=== PATIENT | male | born 1935 | race Caucasian/White ===

== ENCOUNTER → 2017-03-07 | Outpatient (CLI) | payer OTHER ==
--- NOTE | 2017-03-10 11:46 | EEG Procedure Note ---
EEG Procedure Note Date of Service Mar 07, 2017. Start / End Times Start Time: 9:15 AM End Time: 9:36 AM Referring Physician Francia Goodman History This is a 81-year-old male with a history of epilepsy NOS and breakthrough seizures. EEG for further evaluation of seizure etiology. Home medications include phenobarbital Description This is a 21 electrode EEG with a single channel dedicated to limited EKG. The electrodes were placed in accordance with the International 10-20 system. At the start of the recording the patient was in an awake state. Background was well organized and composed of symmetric mixed alpha and beta frequencies. There was a symmetric well-formed moderate amplitude 10-11 Hz posterior dominant rhythm that was reactive to eye opening and closure. Hyperventilation was not done. Intermittent photic stimulation at various frequencies produced no abnormalities. There was no state changes or sleep transients. Interpretation This is a normal awake only routine EEG. There was no electrographic seizures or epileptiform discharges. Clinical Correlation A normal EEG does not rule out epilepsy if there is a strong clinical suspicion.
== END | disposition home or self-care (01) ==
LOC: C.NEUR 08:58
PROVIDERS: ATTEND Psychiatry & Neurology Neurology
DX: G40.909 Epilepsy, unspecified, not intractable, without status epilepticus (principal)

== ENCOUNTER 2020-05-20 23:41 | Inpatient (IN) ==
[2020-05-21] MEDS ORDERED: MoRPHine SULFATE 2 MG/ML CARP IV PRN (02:15)
[2020-05-21] MEDS ORDERED: ACETAMINOPHEN 1000 MG/100 ML IV IV PRN (02:15)
[2020-05-21] MEDS ORDERED: ONDANSETRON INJ 2 MG/ML 2 ML VIAL IV PRN ×3 (02:15→18:44)
[2020-05-21] MEDS ORDERED: MoRPHine SULFATE 2 MG/ML CARP ONE (02:30)
[2020-05-21] MEDS: SODIUM CHLORIDE 0.9% 1000ML 1,000 ML IV SCH ×3 (02:41→19:23)
--- NOTE | 2020-05-21 03:50 | History & Physical Report ---
Date of Service May 21, 2020 Assessment & Plan (1) Fracture of femoral neck, left: Mr. Castro is an 84 yo M with a PMHx of cerebral palsy who was transferred from [facility] after sustaining a left femoral neck fracture after a mechanical fall. - left LE is neurovascular intact on exam - radiographs from [facility] uploaded in our system, available for review. No pelvic fracture or dislocations noted. - orthopedic surgery (Dr. Lora) has accepted patient, formal consult placed - IV Tylenol prn and IV morphine prn for pain control - CBC, BMP in AM - NPO in anticipation of procedure - bedrest - case management consulted for discharge planning, as patient will likely need rehab after surgery (2) Benign localized hyperplasia of prostate with urinary obstruction and lower urinary tract symptoms: - continue home flomax and duasteride (3) Hyperlipidemia: - continue home statin and baby ASA (4) Hx of seizure disorder: - patient had history of seizure disorder as a child. most recent seizure was 70 years ago, yet he is still taking phenobarbital 32.4mg, daily - continued overnight, but recommend day team discuss discontinuation fo this agent (5) Pulmonary nodule: - nodule of left lung noted on CXR incidentally from [facility] - images uploaded in iP[employer] - DVT ppx: Lovenox 40mg, SQ, daily, SCDs - Diet: NPO in anticiation of procedure - Dispo: Med/Surg - Code: DNR/dNI Admission and Anticipated Discharge Date Admission Date: May 21, 2020 History of Present Illness Primary Care Provider: Gabby Reyna MD Mr. Castro is an 84 yo M with a PMHx of cerebral palsy who was transferred to [facility] from [facility] overnight for surgical consultation regarding a left femoral neck fracture he sustained on 05/20/20. [facility] he sustained a mechanical fall on pavement. He typically uses a walker to ambulate around his house, but he reported that he did not have his typical assistive device while at the gathering. Instead, he was walking around with the aid of a "3 britt" and the support fo a family member - however they could not catch him before be fell down and struck the pavement. Immediately after the fall he had severe left hip pain and swelling. He could not bear weight on his left leg after the fall. An ambulance was called and transported him to [facility] where XRs showed a non- displaced left femoral neck fracture. He was treated with IV morphine for pain control. The [facility] ED physician spoke with Dr. Lora (orthopedic surgeon) at [facility] who accepted his transfer. Medicine team was contacted and processed direct admission. Of note, Mr. Castro has had one prior operation on his left femur - this occured many years ago and was related to his cerebral palsy. Allergies Allergy/AdvReac Type Severity Reaction Status Date / Time No Known Drug Allergies Allergy Verified 03/02/20 12:23 Home Medications Home Medications Medication Instructions Recorded Confirmed Type ascorbic acid (vitamin C) 500 mg 500 mg PO .TAKE 1 TABLET DAILY. 03/01/20 05/21/20 History tablet aspirin 81 mg tablet,delayed 81 mg PO .TAKE 1 TABLET DAILY. 03/01/20 05/21/20 History release calcium polycarbophil 625 mg tablet 625 mg PO .TAKE 2 TABLET Bedtime 03/01/20 05/21/20 History ibuprofen 200 mg tablet 200 mg PO .TAKE 1 TABLET Every 4 03/01/20 05/21/20 History hours PRN phenobarbital 32.4 mg tablet 32.4 mg PO .TAKE 1 TABLET TWICE 03/01/20 05/21/20 History DAILY. rosuvastatin 10 mg tablet 10 mg PO .TAKE 1 TABLET DAILY. 03/01/20 05/21/20 History dutasteride 0.5 mg capsule 0.5 mg PO DAILY #90 cap 03/02/20 05/21/20 Rx tamsulosin 0.4 mg capsule 0.4 mg PO BID 90 Days #180 cap 03/02/20 05/21/20 Rx Past Med/Surg History Medical History Bilateral inguinal hernia BPH (benign prostatic hyperplasia) Bronchitis Cerebral palsy Cough Diverticula of colon Epistaxis 06/23/18 Femur neck fracture 05/20/20 History of seizure as Hypercholesterolemia Hyperlipidemia Sepsis 01/24/18 Surgical History Hx of hernia repair Family History Grandfather No problems noted. Father COPD (chronic obstructive pulmonary disease) Cardiac disorder Mother Cardiac disorder Breast cancer Other Nephrolithiasis Seizures Social History Smoking Status: Never smoker Hx Alcohol Use: No Hx Substance Use: No Preferred Language: Greek Communication Ability: Effective Lot Attendant Required: No Beliefs That Will Affect Care: None marital status: Single Current Living Situation: Family Current Living Situation Comment: with sister current occupational status: retired Other Information That Helps Us Care for You: No Feels Safe at Home: Yes Safety Concerns: Feels Safe At This Time Review of Systems Musculoskeletal: as per Subjective / HPI Physical Exam Constitutional: well nourished, + acute distress and cooperative Eyes: + anicteric sclerae ENMT: external ear and nose normal, oropharynx normal Neck: normal visual inspection and trachea midline Respiratory: normal respiratory effort, lungs clear to auscultation Cardiovascular: RRR, no murmur, no edema Heart Sounds: normal S1 and normal S2 Gastrointestinal (Abdomen): normal bowel sounds, soft, nontender, no hepatosplenomegaly Musculoskeletal: Hip: + hip abnormal to inpsection (L hip swelling and ecchymosis), + ecchymosis, + surgical incision (well healed incision ) and + limited ROM of hip Left lower extremity is neurovascularly intact - peripheral pulses +2. Patient sensate to gross touch, able to wiggle toes on L foot. Psychiatric: A+Ox3, euthymic affect Genitourinary: Landers catheter in place, draining yellow urine without visible blood clots Results & Data Results & Data ([facility]) Vital Signs (Past 12 Hours) Vital Signs Temp Resp BP Pulse Ox 05/21/20 01:30 36.8 C 18 92/52 L 94 Supervising Physician Co-Signing Physician Notes Attending addendum: I have physically seen this patient, have supervised the medical residents activities, and agree with the H&P unless as otherwise noted. Assessment and Plan: Closed fracture left femoral neck- NPO Acetaminophen 1 g IV every 8 hours PRN mild pain or temperature Morphine sulfate 2 mg IV every 4 hours as needed severe pain Consult orthopedic surgery Dr. Lora. Zofran 4 mg IV every 6 hours PRN Famotidine 20 mg IV every 12 hours BPH with OBS/LUTS- Continue Flomax and dutasteride Hyperlipidemia- Continue rosuvastatin Remainder of orders and notations as noted. Resident Activity Tracking Resident Involvement: Resident Care Provided Care Provided: Adult Hospital Medicine
[2020-05-21 05:45] LABS: Basophils # (auto) 0.01 K/uL (0-0.2); Basophils % (auto) 0.1 %; Eosinophils # (auto) 0.09 K/uL (0-0.5); Eosinophils % (auto) 0.9 %; Hemoglobin 13.9 g/dL (14.0-18.0); Immature Granulocytes # (auto) 0.02 K/uL (0.00-0.02); Immature Granulocytes % (auto) 0.2 %; Lymphocytes # (auto) 1.02 K/uL (1.2-3.4); Lymphocytes % (auto) 10.2 %; Mean Corpuscular Hemoglobin 31.4 pg (25-34); Mean Corpuscular Hgb Conc 32.3 g/dL (32-36); Mean Corpuscular Volume 97.3 fL (80-100); Monocytes # (auto) 0.48 K/uL (0.11-0.59); Monocytes % (auto) 4.8 %; Neutrophils # (auto) 8.39 K/uL (1.4-6.5); Neutrophils % (auto) 83.8 %; Platelet Count 152 K/uL (130-400); RDW Coefficient of Variation 14.4 % (11.5-14.5); RDW Standard Deviation 51.3 fL (36.4-46.3); Red Blood Count 4.42 M/uL (4.7-6.1); White Blood Count 10.01 K/uL (4.8-10.8)
[2020-05-21 06:09] LABS: BUN Creatinine Ratio 20.9 (10-20); Calcium 8.1 mg/dl (8.5-10.1); Creatinine Clr Calc Pharmacy 47.2 ml/min; Est GFR (Non-African American) 81.1; Potassium 4.4 mmol/L (3.5-5.1)
--- NOTE | 2020-05-21 07:51 | Orthopedic Consultation ---
Date of Consultation May 21, 2020 Assessment & Plan (1) Fracture of femoral neck, left: He has a displaced left femoral neck fracture. This will require a left hip hemiarthroplasty. I discussed this with him and his family. They understand the risks, benefits, and alternatives to procedure and elected proceed. Questions were answered at bedside today.Postoperatively he will be kept on anticoagulants and kept in the hospital for postoperative medical management and ambulation with physical therapy. Present on Admission?: Yes History of Present Illness Reason for Consultation: Displaced left femoral neck fracture Attending Physician: Greg Gonzalez DO History of Present Illness Willem is a pleasant 84-year-old male with a history of cerebral palsy. He normally ambulates with a walker. He was at a family gathering yesterday when he fell on the pavement. He had severe left hip pain. He was brought to the emergency room where radiographs demonstrated a displaced left femoral neck fracture. He was transferred from [facility] emergency room to [facility]. Orthopedics was consulted to evaluate and treat. Allergies Allergy/AdvReac Type Severity Reaction Status Date / Time No Known Drug Allergies Allergy Verified 03/02/20 12:23 Home Medications Home Medications Medication Instructions Recorded Confirmed Type ascorbic acid (vitamin C) 500 mg PO .TAKE 1 TABLET DAILY. 03/01/20 03/01/20 History tablet aspirin 81 mg tablet,delayed mg PO .TAKE 1 TABLET DAILY. 03/01/20 03/01/20 History release calcium polycarbophil 625 mg tablet mg PO .TAKE 2 TABLET Bedtime 03/01/20 03/01/20 History ibuprofen 200 mg tablet mg PO .TAKE 1 TABLET Every 4 hours 03/01/20 03/01/20 History PRN phenobarbital 32.4 mg tablet mg PO .TAKE 1 TABLET TWICE DAILY. 03/01/20 03/01/20 History rosuvastatin 10 mg tablet mg PO .TAKE 1 TABLET DAILY. 03/01/20 03/01/20 History dutasteride 0.5 mg capsule 0.5 mg PO DAILY #90 cap 03/02/20 03/02/20 Rx tamsulosin 0.4 mg capsule 0.4 mg PO BID 90 Days #180 cap 03/02/20 03/02/20 Rx Patient History Medical History Bilateral inguinal hernia BPH (benign prostatic hyperplasia) Bronchitis Cerebral palsy Cough Diverticula of colon Epistaxis 06/23/18 Femur neck fracture 05/20/20 History of seizure as Hypercholesterolemia Hyperlipidemia Sepsis 01/24/18 Surgical History Hx of hernia repair Family History Grandfather No problems noted. 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 Beliefs That Will Affect Care: None marital status: Single Current Living Situation: Family Current Living Situation Comment: with sister current occupational status: retired Other Information That Helps Us Care for You: No Feels Safe at Home: Yes Safety Concerns: Feels Safe At This Time Review of Systems Review of Systems: All systems reviewed & are unremarkable except as noted in HPI & below Physical Exam Constitutional: WD/WN, vitals as above Eyes: PERRL, conjunctivae normal, anicteric sclerae ENMT: external ear and nose normal, oropharynx normal Neck: trachea midline, no thyromegaly Respiratory: normal respiratory effort Cardiovascular: RRR, no murmur, no edema Gastrointestinal (Abdomen): normal bowel sounds, soft, nontender, no hepatosplenomegaly Musculoskeletal: On physical examination of the left hip, he sitting with his hip flexed that 90 degrees. I am unable to do any range of motion of his hip because of pain. There are no abrasions lesions lacerations of the skin. Psychiatric: A+Ox3, euthymic affect Results & Data ([facility]) Vital Signs (Past 12 Hours) Vital Signs Temp Pulse Resp BP Pulse Ox 05/21/20 07:09 36.4 C L 83 16 111/64 96 05/21/20 01:30 36.8 C 18 92/52 L 94 Diagnostic Findings X-rays of the left hip and pelvis do show a displaced left femoral neck fracture. PG Care Time/CCT Total # of Minutes Spent Total Time Spent with Patient: Total time spent is greater than 50% in coordination of care (as documented) at patient's floor/unit and/or counseling patient: Coding Level of Care Code 18619 Initial Inpt Care Lvl 3 Diagnoses Fracture of femoral neck, left S72.002A
[2020-05-21] MEDS ORDERED: ENOXAPARIN INJ 40 MG/0.4 ML SYR SQ SCH (09:00)
--- NOTE | 2020-05-21 10:10 | Hospitalist Progress Note ---
Date of Service May 21, 2020 Assessment & Plan (1) Fracture of femoral neck, left: Mr. Castro is an 84 yo M with a PMHx of cerebral palsy who was transferred from [facility] after sustaining a left femoral neck fracture after a mechanical fall. - radiographs from [facility] with left femoral neck fracture. No pelvic fracture or dislocations noted. - orthopedic surgery consulted - discussed with patient's poa and he is scheduled for surgery this morning - IV Tylenol prn and IV morphine prn for pain control - NPO for procedure - Will add coags for lab work as I don't see any from previous hospital or currently - CXR from previous hospital readout without acute infiltrate, edema, or effusion. Does show a left pulmonary nodule - No EKGs available from previous. Patient denies chest pain and does not appear to have a cardiac history. EKG shows bifasicular block. Given that he is not experiencing anginal symptoms and his fall was mechanical, this is likely a chronic finding. - VSS, no electrolyte abnormalities - case management consulted for discharge planning, as patient will likely need rehab after surgery (2) Hyperlipidemia: resume rosuvastatin when able to take po (3) Hx of seizure disorder: resume phenobarbital when taking po. Patient has not had a seizure in 70 years. Could discuss weaning off of this medication with his pcp Phenobarb level am (4) Pulmonary nodule: follow up with pcp (5) Benign localized hyperplasia of prostate with urinary obstruction and lower urinary tract symptoms: Continue dutasteride and tamsulosin when taking po (6) DVT prophylaxis: Per surgery Admission and Anticipated Discharge Date Admission Date: May 21, 2020 Subjective Mr. Castro is comfortable as he is laying in bed but does have pain in his hip with any movement. He denies any sob or chest pain. He is oriented to person and place. ROS Constitutional: no chills, aches, sweats or fever Respiratory: no sob,cough, sputum, or wheezing Cardiac: no chest pain, palpitations, edema, orthopnea or lightheadedness GI: no abdominal pain, nausea, vomiting, diarrhea or constipation : no dysuria or hesitancy Extremities: see HPI Skin: no rash All other systems reviewed and negative Physical Exam Physical Exam: General: no distress Eyes: normal inspection, PERLL Respiratory: chest non tender, clear to auscultation, normal breath sounds, no respiratory distress, no accessory muscle use Cardiac: regular rate and rhythm, no rub or gallop, no murmur, no edema, no jvd GI/: active bowel sounds, no abd pain or tenderness, soft, non distended Extremities: normal range of motion, normal strength, non tender Neuro/Psych: alert and oriented x 3, normal mood and affect Skin: normal color, dry Results & Data Results & Data ([facility]) Vital Signs (Past 12 Hours) Vital Signs Temp Pulse Resp BP Pulse Ox 05/21/20 07:09 36.4 C L 83 16 111/64 96 05/21/20 01:30 36.8 C 18 92/52 L 94 PG Care Time/CCT Total # of Minutes Spent Total Time Spent with Patient: Total time spent is greater than 50% in coordination of care (as documented) at patient's floor/unit and/or counseling patient: Coding Level of Care Code None Diagnoses Fracture of femoral neck, left S72.002A Hyperlipidemia E78.5 Hx of seizure disorder Z86.69 Pulmonary nodule R91.1 Benign localized hyperplasia of prostate with urinary obstruction and lower urinary tract symptoms N40.1; N13.9 DVT prophylaxis Z29.9
[2020-05-21 10:31] LABS: INR 1.2 (0.9-1.1); Partial Thromboplastin Ratio 1.1; Partial Thromboplastin Time 29.3 Seconds (21.0-31.0)
--- NOTE | 2020-05-21 13:50 | Anesthesiology Consultation ---
Date of Service May 21, 2020 Assessment & Plan (1) Encounter for pre-operative examination: ASA ASA3 Proposed Anesthesia Anesthesia Type: General and MAC Spinal History Surgery Operation Date: 05/21/20 14:00 Proposed Procedures p Left Total Hip Arthroplasty Uncemt Anterior(Left) - Ponce Lora DO Height/Weight Height: 5 ft 2 in Weight: 49.8 kg Allergies Allergy/AdvReac Type Severity Reaction Status Date / Time No Known Drug Allergies Allergy Verified 03/02/20 12:23 Medications Home Medications Medication Instructions Recorded Confirmed Last Taken ascorbic acid (vitamin C) 500 mg 500 mg PO .TAKE 1 TABLET DAILY. 03/01/20 05/21/20 Unknown tablet aspirin 81 mg tablet,delayed 81 mg PO .TAKE 1 TABLET DAILY. 03/01/20 05/21/20 Unknown release calcium polycarbophil 625 mg tablet 625 mg PO .TAKE 2 TABLET Bedtime 03/01/20 05/21/20 Unknown ibuprofen 200 mg tablet 200 mg PO .TAKE 1 TABLET Every 4 03/01/20 05/21/20 Unknown hours PRN phenobarbital 32.4 mg tablet 32.4 mg PO .TAKE 1 TABLET TWICE 03/01/20 05/21/20 Unknown DAILY. rosuvastatin 10 mg tablet 10 mg PO .TAKE 1 TABLET DAILY. 03/01/20 05/21/20 Unknown dutasteride 0.5 mg capsule 0.5 mg PO DAILY #90 cap 03/02/20 05/21/20 Unknown tamsulosin 0.4 mg capsule 0.4 mg PO BID 90 Days #180 cap 03/02/20 05/21/20 Unknown Active Medications Generic Name Dose Route Start Last Admin Trade Name Keenan PRN Reason Stop Dose Admin Acetaminophen 1,000 mg 05/21/20 02:15 05/21/20 04:07 Acetaminophen 1000 Mg/100 Ml Iv IV 05/24/20 02:14 1,000 mg Q8 PRN Administration Mild Pain Enoxaparin Sodium 40 mg 05/21/20 09:00 05/21/20 08:18 Enoxaparin Inj 40 Mg/0.4 Ml Syr SQ 06/20/20 08:59 Not Given QAM SATINDER Sodium Chloride 1,000 mls @ 60 mls/hr 05/21/20 02:30 05/21/20 02:41 Nss 1000ml IV 06/20/20 02:29 60 mls/hr .[id number] SATINDER Administration Morphine Sulfate 2 mg 05/21/20 02:15 05/21/20 04:53 Morphine Sulfate 2 Mg/Ml Carp IV 06/04/20 02:14 2 mg Q1H PRN Administration Pain NPO Date Last Intake of Fluids: 05/20/20 Time Last Intake of Fluids: 18:00 Date Last Intake of Solids: 05/20/20 Time Last Intake of Solids: 08:00 Past Medical History Medical History Bilateral inguinal hernia BPH (benign prostatic hyperplasia) Bronchitis Cerebral palsy Cough Diverticula of colon Epistaxis 06/23/18 Femur neck fracture 05/20/20 History of seizure as Hypercholesterolemia Hyperlipidemia Sepsis 01/24/18 Past Family History Family History Grandfather No problems noted. Father COPD (chronic obstructive pulmonary disease) Cardiac disorder Mother Cardiac disorder Breast cancer Other Nephrolithiasis Seizures Past Surgical History Surgical History Hx of hernia repair Social History Smoking Status: Never smoker Hx Alcohol Use: No Hx Substance Use: No Physical Exam Vital Signs Last Vital Signs Temp 36.4 C L 05/21/20 07:09 Pulse 83 05/21/20 07:09 Resp 16 05/21/20 07:09 BP 111/64 05/21/20 07:09 Pulse Ox 96 05/21/20 07:09 Testing Laboratory Results 05/21/20 05:21 05/21/20 05:21 PT 13.0 Seconds (9.0-12.0) H 05/21/20 10:07 INR 1.2 (0.9-1.1) H 05/21/20 10:07 APTT 29.3 Seconds (21.0-31.0) 05/21/20 10:07 Blood Type O Positive 05/21/20 10:07 Antibody Screen NEGATIVE 05/21/20 10:07 Electrocardiogram Date: 05/21/20 Normal sinus rhythm Right bundle branch block Left anterior fascicular block Bifascicular block Abnormal ECG No previous ECGs available
[2020-05-21] MEDS ORDERED: fentaNYL citrate 100 MCG/2 ML VIAL ONE (13:53)
[2020-05-21] MEDS ORDERED: BUPIVACAINE 0.5 % 5 MG/1 ML PF 10ML VIAL ONE (13:58)
[2020-05-21] MEDS ORDERED: ePHEDrine sulfate 50 MG/ML AMP IV PRN (14:10)
[2020-05-21] MEDS ORDERED: ATROPINE SULFATE 0.1 MG/ML 10ML SYR IV PRN (14:10)
[2020-05-21] MEDS ORDERED: HYDROmorphone INJ 1 MG/ML SYRINGE IV PRN (14:10)
[2020-05-21] MEDS ORDERED: fentaNYL citrate 100 MCG/2 ML VIAL IV PRN (14:10)
--- NOTE | 2020-05-21 14:11 | History & Physical Bridge Note ---
Date of Service May 21, 2020 History & Physical Bridge Note I have examined the patient, reviewed the History & Physical and in the interval since the performance of the History & Physical I have noted the following changes of clinical significance: no changes noted
[2020-05-21] MEDS ORDERED: ceFAZolin 1000MG 1,000 MG/7.5 ML SYR IV ONE (14:37)
[2020-05-21] MEDS ORDERED: LIDOCAINE HCL 2% 2 ML VIAL/AMP(20MG/ML) INFIL ONE (14:58)
[2020-05-21] MEDS ORDERED: PROPOFOL IV EMULSION 10 MG/ML 20 ML VIAL IV ONE (14:58)
--- NOTE | 2020-05-21 16:35 | Fluoroscopy Report ---
FL hip LT 1V HISTORY: 84 years-old Male LT ANTERIOR HIP left hip total joint arthroplasty COMPARISON: Pelvis and hip radiographs 05/20/2020 TECHNIQUE: 4 spot fluoroscopic images of the left hip were obtained utilizing 21.6 seconds fluoroscop y time FINDINGS: Left hip total arthroplasty demonstrates satisfactory alignment. Expected postoperative soft tissue s welling with deep tissue air. Expected radiopaque foreign body. IMPRESSION: Fluoroscopic assistance as above. Please see operative report for further details. ACT 112: Negative or not required by law. The above report was generated using voice recognition software. It may contain grammatical, syntax o r spelling errors. Electronically signed by: Herbert Myers M.D. 05/21/2020 4:34 PM
[2020-05-21] MEDS ORDERED: ONDANSETRON INJ 2 MG/ML 2 ML VIAL ONE ×2 (16:49→17:08)
--- NOTE | 2020-05-21 16:49 | Operative Report ---
PG Post Operative Report Pre & Post Diagnosis Operation Date: 05/21/20 14:00 Pre-Op Diagnosis: Fracture of femoral neck, left Post-Op Diagnosis: Fracture of femoral neck, left I identified the patient and participated in the time-out.: Yes Procedure Operation Date: 05/21/20 14:00 Actual Procedures p Left Anterior Hip Hemiarthroplasty Cemented(Left) - Ponce Lora DO Surgeon Ponce Lora DO Director Of Industrial Relations Dago Minor PAC Estimated Blood Loss 250 Findings Consistent with Post-Op Diagnosis Specimens Left femoral head Complications none Disposition Disposition: Recovery Room Indications Willem is a pleasant 84-year-old male who was at a family gathering yesterday when he fell onto his left hip. He had immediate pain. He was transferred from [facility] the emergency room where radiographs demonstrated a displaced left femoral neck fracture. After discussions with the family, he elected proceed with a left anterior hip hemiarthroplasty. Description of Procedure On May 21, 2020 he was brought down from his hospital bed to the preoperative holding area. The operative extremity was identified and signed. He was given a preoperative antibiotic and a spinal anesthetic. He was taken back to the operating room and laid on the table in supine position. He was given basic sedation. The left hip was brought out to a Purist leg positioner. The left hip was prepped and draped in sterile fashion. A timeout was done. The patient and the operative extremity was properly identified. An anterior approach was used. Dissection was taken down through the fascia. The rectus was retracted medially and the tensor muscle belly was retracted laterally. The circumflex vessels were ligated. The femoral neck was then exposed. The femoral neck was then resected with an oscillating saw. The neck was removed. The fractured head was then removed from the acetabulum. The acetabulum was then exposed and some labral fragments were removed. The femoral head measured to be a size 46. The proximal femur was then exposed. Sequential broaching up to a size 12 broach was done. A standard femoral neck was placed and a +10 femoral head. The hip was then reduced. Fluoroscopic images showed anatomic alignment. The hip was then dislocated. The broach was removed. The final size 11 Gayle LD FX smooth stem was then cemented in place with Palacos G cement. Once cement had hardened a 28 mm head and a 10.5 mm neck was snapped into place. A 46 mm shell was snapped over the 28 mm head. The head was then impacted onto the femoral stem. The hip was then reduced. Final fluoroscopic images showed anatomic alignment. The wound was then irrigated. The capsule was closed with #1 Vicryl suture. Hemostasis was obtained. The fascia was closed with #1 PDS suture. Skin was closed with 3-0 Vicryl and amandeep. A Silverlon dressing was placed. He was then transferred to a hospital bed and taken to the postanesthesia care unit in stable condition. He tolerated the procedure well. Dago Rossi PA-C, was present for the entire procedure. He was critical for patient positioning, prepping, draping, retraction exposure, wound closure and application of sterile dressing. I attest to the content of the Intraoperative Record and any orders documented therein. Any exceptions are noted below.
[2020-05-21] MEDS ORDERED: PROMETHAZINE HCL 6.25 MG in SODIUM CHLORIDE 0.9% 50 ML IV STA (17:26)
--- NOTE | 2020-05-21 17:48 | XRay Report ---
XR hip LT min 2V HISTORY: 84 years-old Male Post-Operative implant position left hip total joint arthroplasty COMPARISON: Fluoroscopic images of the left hip is same day TECHNIQUE: 2 views of the left hip FINDINGS: Left hip total joint arthroplasty. Satisfactory alignment without acute fracture or unexpected retain ed foreign body. Lateral skin amandeep are noted along with expected postsurgical soft tissue swelling and deep tissue air. IMPRESSION: Left hip total joint arthroplasty with expected postoperative changes. ACT 112: Negative or not required by law. The above report was generated using voice recognition software. It may contain grammatical, syntax o r spelling errors. Electronically signed by: Herbert Myers M.D. 05/21/2020 5:46 PM
--- NOTE | 2020-05-21 18:07 | Anesthesiology Progress Note ---
Date of Service May 21, 2020 Anesthesia Post Procedure Vital Signs Vital Signs: Temp Pulse Pulse Resp BP BP BP 05/21/20 17:50 89 22 144/67 H 05/21/20 17:40 95 H 24 159/71 H 05/21/20 17:30 99 H 22 140/74 05/21/20 17:20 100 H 20 136/63 05/21/20 17:10 96 H 18 98/55 L 05/21/20 17:01 36.3 C L 85 14 127/91 05/21/20 07:09 36.4 C L 83 16 111/64 05/21/20 01:30 36.8 C 18 92/52 L Pulse Ox 05/21/20 17:50 96 05/21/20 17:40 92 05/21/20 17:30 94 05/21/20 17:20 97 05/21/20 17:10 95 05/21/20 17:01 96 05/21/20 07:09 96 05/21/20 01:30 94 Pain Intensity Left Leg: Pain Intensity: 2 Transfer of Care Handoff Completed per policy Notes Mental Status: alert / awake / arousable Patient Amnestic to Procedure: Yes Nausea / Vomiting: adequately controlled Pain: adequately controlled Airway Patency, RR, SpO2: stable & adequate BP & HR: stable & adequate Hydration State: stable & adequate Neuraxial Anesthesia: was administered and sensory block is resolving Anesthetic Complications: no major complications apparent and Pt Satisfied with anesthetic care Notes: The patient is awake and stable in recovery. He was nauseous but has been treated with Zofran and Phenergan.
[2020-05-21] MEDS ORDERED: NALOXONE HCL 0.4 MG/1 ML VIAL/CARP IV PRN ×2 (18:44)
[2020-05-21] MEDS ORDERED: METOCLOPRAMIDE HCL INJ 5 MG/ML 2 ML VIAL IV PRN (18:44)
[2020-05-21] MEDS ORDERED: bisacodyL 10 MG SUPP PR PRN (18:44)
[2020-05-21] MEDS ORDERED: MAGNESIUM HYDROXIDE SUSP 30 ML UDC PO PRN (18:44)
[2020-05-21] MEDS: CALCIUM POLYCARBOPHIL 625MG TAB PO SCH (20:38)
[2020-05-21] MEDS: TAMSULOSIN HCL 0.4 MG CAP PO SCH (20:39)
[2020-05-21] MEDS: SENNA 8.6 MG TAB PO SCH (20:39)
[2020-05-21] MEDS: DOCUSATE SODIUM 100 MG CAP PO SCH (20:39)
[2020-05-21] MEDS: ASPIRIN 81 MG ECTAB PO SCH (20:39)
[2020-05-21] MEDS: *DUTASTERIDE*ORDER AWAITING ACTION SCH (23:29)
--- NOTE | 2020-05-22 03:55 | Billing Data ---
Date of Service May 22, 2020 Coding Level of Care Code 88985 Initial Inpt Care Lvl 3
[2020-05-22] MEDS: SODIUM CHLORIDE 0.9% 1000ML 1,000 ML IV SCH (05:15)
[2020-05-22 06:13] LABS: Basophils # (auto) 0.02 K/uL (0-0.2); Basophils % (auto) 0.2 %; Eosinophils % (auto) 2.1 %; Hematocrit (blood only) 37.2 % (42-52); Hemoglobin 12.5 g/dL (14.0-18.0); Immature Granulocytes # (auto) 0.02 K/uL (0.00-0.02); Immature Granulocytes % (auto) 0.2 %; Lymphocytes # (auto) 1.19 K/uL (1.2-3.4); Lymphocytes % (auto) 12.4 %; Mean Corpuscular Hemoglobin 32.1 pg (25-34); Mean Corpuscular Hgb Conc 33.6 g/dL (32-36); Mean Corpuscular Volume 95.6 fL (80-100); Mean Platelet Volume 9.4 fL (7.4-10.4); Monocytes # (auto) 0.64 K/uL (0.11-0.59); Monocytes % (auto) 6.6 %; Neutrophils # (auto) 7.56 K/uL (1.4-6.5); Neutrophils % (auto) 78.5 %; Platelet Count 146 K/uL (130-400); RDW Coefficient of Variation 14.7 % (11.5-14.5); RDW Standard Deviation 51.5 fL (36.4-46.3); Red Blood Count 3.89 M/uL (4.7-6.1); White Blood Count 9.63 K/uL (4.8-10.8)
[2020-05-22 06:39] LABS: BUN Creatinine Ratio 13.4 (10-20); Calcium 8.3 mg/dl (8.5-10.1); Creatinine Clr Calc Pharmacy 39.3 ml/min; Est GFR (Non-African American) 68.1; Potassium 4.1 mmol/L (3.5-5.1)
--- NOTE | 2020-05-22 06:48 | Electrocardiogram Report ---
Test Reason : Blood Pressure : / mmHG Vent. Rate : 074 BPM Atrial Rate : 074 BPM P-R Int : 160 ms QRS Dur : 146 ms QT Int : 420 ms P-R-T Axes : 056 -69 008 degrees QTc Int : 466 ms Normal sinus rhythm Right bundle branch block Left anterior fascicular block Bifascicular block Abnormal ECG No previous ECGs available Confirmed by Julio Moreno ([id number]) on 05/22/2020 6:47:48 AM Referred By: Abhishek Albright Confirmed By:Julio Moreno
--- NOTE | 2020-05-22 08:35 | Orthopedic Progress Note ---
Date of Service May 22, 2020 Assessment & Plan (1) Fracture of femoral neck, left: Overall he seems to be doing well with regards to his hip. He does not seem to be having too much hip pain. He will be on aspirin 81 mg twice a day for DVT prophylaxis. He can be up and ambulating with physical therapy. He is orthopedically stable for discharge when medically ready. He will follow-up with orthopedics in 2 weeks for staple removal. Full discharge instructions were placed in the discharge summary. Present on Admission?: Yes Admission and Anticipated Discharge Date Admission Date: May 21, 2020 Radha Bangura was seen and examined at bedside this morning. He was awake but he seemed confused and disoriented. He was sliding out of the bed when I came into the room. Apparently he had an incident last night where he try to get up to use the restroom and he felt lightheaded and the nurses had to help him back down to a bed. He does not seem to be having too much pain in the left hip. Physical Exam Musculoskeletal: On physical examination of the left hip, his leg lengths seem approximately equal. His dressing is clean and dry. I am unable to get him to cooperate with a neurologic examination. Results & Data ([facility]) Vital Signs (Past 12 Hours) Vital Signs Temp Pulse Resp BP Pulse Ox 05/22/20 07:20 37.0 C 101 H 18 138/61 93 05/22/20 03:18 36.5 C 100 H 20 120/80 92 05/21/20 23:42 37.0 C 97 H 16 117/63 92 05/21/20 21:21 36.5 C 88 17 108/74 94 Laboratory Results H & H 05/21/20 05/22/20 Range/Units 05:21 05:27 Hgb 13.9 L 12.5 L (14.0-18.0) g/dL Hct 43.0 37.2 L (42-52) % Coagulation 05/21/20 Range/Units 10:07 INR 1.2 H (0.9-1.1) Diagnostic Findings Postoperative x-rays of the left hip show the prosthesis to be in anatomic alignment without any evidence of fracture, dislocation, or loosening. PG Care Time/CCT Total # of Minutes Spent Total Time Spent with Patient: Total time spent is greater than 50% in coordination of care (as documented) at patient's floor/unit and/or counseling patient: Coding Level of Care Code None Diagnoses Fracture of femoral neck, left S72.002A
[2020-05-22] MEDS: ROSUVASTATIN CALCIUM 10 MG TAB PO SCH (08:36)
[2020-05-22] MEDS: TAMSULOSIN HCL 0.4 MG CAP PO SCH ×2 (08:36→20:59)
[2020-05-22] MEDS: ASPIRIN 81 MG ECTAB PO SCH ×2 (08:36→20:58)
[2020-05-22] MEDS: *DUTASTERIDE*ORDER AWAITING ACTION SCH ×3 (08:36→23:30)
[2020-05-22] MEDS: DOCUSATE SODIUM 100 MG CAP PO SCH ×2 (08:37→20:58)
[2020-05-22] MEDS: MULTIVITAMIN TAB PO SCH (08:37)
[2020-05-22] MEDS: ASCORBIC ACID 500 MG TAB PO SCH (08:37)
--- NOTE | 2020-05-22 09:48 | Hospitalist Progress Note ---
Date of Service May 22, 2020 Assessment & Plan (1) Fracture of femoral neck, left: Mr. Castro is an 84 yo M with a PMHx of cerebral palsy who was transferred from [facility] after sustaining a left femoral neck fracture after a mechanical fall. Orthopedics consulted -- appreciate assistance * POD #1 s/p LEFT hip hemiarthoroplasty with Dr. Lora. EBL 250cc. Pre-op h/h 13.9/43.0. H/h dropped to 12.5/37.2 -- likely combination of acute blood loss following surgery as well as dilutional from IVF * Tylenol, morphine prn pain --> I added oxycodone for PO alternative 05/22 * CXR pre-op without acute infiltrate, did have LEFT pulmonary nodule * --> Patient requiring oxygen still today but denied SOB--> crackles on exam and repeat CXR obtained showing possible left lung base consolidation, new from 05/20 and placed on Zosyn empirically for PNA * PT/OT evaluations pending -- will likely need SNF at discharge and ref sent to [facility] (2) Hypoxia: * Of note, patient did have left pulmonary nodule on pre-op CXR * Had been on 4L NC this morning to maintain O2 sat 94% --> weaned off with sats dropping to 88%. Not on home O2. * CXR with possible left lung base consolidation, new from 05/20 * Zosyn for empiric coverage * sputum culture if patient able to produce * nebs prn * Encouraged incentive spirometer although patient only able to get to 500 per nursing * Will check lactic given 36.3C, hypotensive with BP 101/58, tachycardic in low 100s * Continue to monitor (3) Benign localized hyperplasia of prostate with urinary obstruction and lower urinary tract symptoms: * Continue dutasteride and tamsulosin when taking po (4) Hyperlipidemia: * Crestor 10mg daily (5) Hx of seizure disorder: * Phenobarbital 32.4mg BID daily * Phenobarb level wnl --> Of note, patient has not had a seizure in 70 years. Could discuss weaning off of this medication with his pcp (6) Pulmonary nodule: * follow up with pcp vs inpatient pulm consult if continues to remain hypoxic despite above (7) DVT prophylaxis: * ASA 81mg BID Dispo: ref sent to [facility] --> will be inpatient additional 1-2 days pending respiratory status and SNF Admission and Anticipated Discharge Date Admission Date: May 21, 2020 Subjective Patient evaluated this morning. States pain well controlled. He states "I'm feeling pretty good" and was requesting the [email or web address] game be turned on the TV as he had not been able to find it. Confirms May, but stated he was in [facility]. Denies fever, chills, chest pain, shortness of breath (not typically on oxygen at home), cough, abdominal pain, nausea, vomiting. Eating/drinking without difficulty. Has not yet worked with therapy but discussed he will likely need some kind of short term rehab. Patient agreeable. Questions/concerns. Went up later in afternoon to update sister at bedside who helps him at home to discuss chest xray findings and starting treatment for pneumonia. Review of Systems Review of Systems: All systems reviewed & are unremarkable except as noted in HPI & below Physical Exam Constitutional: WD/WN, vitals as above no acute distress Eyes: + anicteric sclerae and PERRL Neck: normal visual inspection Respiratory: normal respiratory effort; no respiratory distress Auscultation: + crackles (posterior lung art); no wheezes Cardiovascular: RRR, no murmur, no edema Gastrointestinal (Abdomen): normal bowel sounds, soft, nontender, no hepatosplenomegaly Musculoskeletal: dressing to left hip c/d/i tender to palpation along lateral aspect of femur NVI 2+ dp, pt bilaterally Skin: warm, dry Neurologic: patellar DTR's 2+ bilat, sensation intact Psychiatric: Orientation: alert, oriented to person and oriented to time; + not oriented to place (able to state in the hospital, but thought it was [place]) Lymphatic: no cervical or axillary lymphadenopathy Results & Data Results & Data ([facility]) Vital Signs (Past 12 Hours) Vital Signs Temp Pulse Resp BP Pulse Ox 05/22/20 07:20 37.0 C 101 H 18 138/61 93 05/22/20 03:18 36.5 C 100 H 20 120/80 92 05/21/20 23:42 37.0 C 97 H 16 117/63 92 Laboratory Results 05/22/20 05/22/20 05/22/20 Range/Units 05:27 05:27 05:27 WBC 9.63 (4.8-10.8) K/uL RBC 3.89 L (4.7-6.1) M/uL Hgb 12.5 L (14.0-18.0) g/dL Hct 37.2 L (42-52) % MCV 95.6 (80-100) fL MCH 32.1 (25-34) pg MCHC 33.6 (32-36) g/dL RDW Std Deviation 51.5 H (36.4-46.3) fL RDW Coeff of Sara 14.7 H (11.5-14.5) % Plt Count 146 (130-400) K/uL MPV 9.4 (7.4-10.4) fL Immature Gran % (Auto) 0.2 % Neut % (Auto) 78.5 % Lymph % (Auto) 12.4 % [place] % (Auto) 6.6 % Eos % (Auto) 2.1 % Baso % (Auto) 0.2 % Neut # (Auto) 7.56 H (1.4-6.5) K/uL Lymph # (Auto) 1.19 L (1.2-3.4) K/uL [place] # (Auto) 0.64 H (0.11-0.59) K/uL Eos # (Auto) 0.20 (0-0.5) K/uL Baso # (Auto) 0.02 (0-0.2) K/uL Immature Gran # (Auto) 0.02 (0.00-0.02) K/uL Sodium 142 (136-145) mmol/L Potassium 4.1 (3.5-5.1) mmol/L Chloride 109 H (98-107) mmol/L Carbon Dioxide 24 (21-32) mmol/L Anion Gap 9.0 (3-11) BUN 14 (7-18) mg/dl Creatinine 1.02 (0.6-1.4) mg/dl Est Cr Clr Drug Dosing 39.3 ml/min Est GFR ( Amer) 79.0 Est GFR (Non-Af Amer) 68.1 BUN/Creatinine Ratio 13.4 (10-20) Glucose 128 H (70-99) mg/dl Calcium 8.3 L (8.5-10.1) mg/dl Phenobarbital 15.0 (15-40) mcg/mL Diagnostic Findings CXR 1. There is developing airspace consolidation at the left lung base, which is new from 05/20/2020. Correlate clinically for evidence of pneumonia/aspiration pneumonitis. Radiographic follow-up to resolution is recommended. 2. Suspect a small left pleural effusion. PG Care Time/CCT Total # of Minutes Spent Total Time Spent with Patient: Total time spent is greater than 50% in coordination of care (as documented) at patient's floor/unit and/or counseling patient: Coding Level of Care Code 47760 Subseq Hosp Care Lvl 3 Diagnoses Fracture of femoral neck, left S72.002A Hypoxia R09.02 Benign localized hyperplasia of prostate with urinary obstruction and lower urinary tract symptoms N40.1; N13.9 Hyperlipidemia E78.5 Hx of seizure disorder Z86.69 Pulmonary nodule R91.1 DVT prophylaxis Z29.9
--- NOTE | 2020-05-22 14:15 | XRay Report ---
SINGLE VIEW CHEST CLINICAL HISTORY: Hypoxia. FINDINGS: An AP, portable, upright chest radiograph is compared to study dated 05/20/2020. The examinat ion is significantly degraded by portable technique and patient rotation. The cardiomediastinal silho uette is unremarkable noting atherosclerotic calcification of the thoracic aorta. Airspace consolidat ion is seen at the left lung base. Suspect a small left pleural effusion. Scarring/atelectasis is not ed the right lung base. No pneumothorax is seen. The skeletal structures are osteopenic. The bony tho rax is grossly intact. IMPRESSION: 1. There is developing airspace consolidation at the left lung base, which is new from 05/20/2020. Daxa elate clinically for evidence of pneumonia/aspiration pneumonitis. Radiographic follow-up to resoluti on is recommended. 2. Suspect a small left pleural effusion. ACT 112: Negative or not required by law. Electronically signed by: Damian Espino M.D. 05/22/2020 2:14 PM
[2020-05-22] MEDS ORDERED: PIPERACILL/TAZOBAC CONSULT ACTIVE PRN (14:50)
[2020-05-22] MEDS ORDERED: LEVALBUTEROL HCL 0.63 MG/3 ML NEB NEB PRN (14:51)
[2020-05-22] MEDS ORDERED: PIPERACILLIN/TAZOBACTAM 3.375 GM in DEXTROSE 5% 100 ML IV STA (14:55)
[2020-05-22 17:14] LABS: Appearance Urine Cloudy (Clear); Bacteria Urine Automated Negative (Negative); Bilirubin Urine Negative (Negative); Blood Urine 3+ (Negative); Color Urine Dark Yellow; Epithelial Cell Urine Auto 20-30 /lpf (0-5); Glucose Urine UA Negative (Negative); Ketones Urine Trace (Negative); Leukocyte Esterase Urine Trace (Negative); Nitrite Urine Negative (Negative); Protein Urine 1+ (Negative); RBC Urine Automated >30 /hpf (0-4); Specific Gravity Urine 1.029 (1.000-1.030); Urobilinogen Urine Negative (Negative)
[2020-05-22] MEDS: oxyCODONE HCL IR 5 MG TAB (IMMEDIATE RELEASE) PO PRN (19:24)
[2020-05-22] MEDS: CALCIUM POLYCARBOPHIL 625MG TAB PO SCH (20:59)
[2020-05-22] MEDS: PIPERACILLIN/TAZOBACTAM 3.375 GM in DEXTROSE 5% 100 ML IV SCH (21:00)
[2020-05-22] MEDS: SENNA 8.6 MG TAB PO SCH (21:00)
[2020-05-22] MEDS ORDERED: METOPROLOL TARTRATE 1 MG/ML VIAL IV PRN (22:26)
[2020-05-22] MEDS ORDERED: METOPROLOL TARTRATE 1 MG/ML VIAL IV ONE (22:30)
[2020-05-22] MEDS ORDERED: SODIUM CHLORIDE 0.9% 1000ML 500 ML IV ONE ×2 (22:33→23:45)
[2020-05-22 23:15] LABS: BUN Creatinine Ratio 19.4 (10-20); Calcium 8.3 mg/dl (8.5-10.1); Creatinine Clr Calc Pharmacy 37.5 ml/min; Est GFR (African American) 74.5; Est GFR (Non-African American) 64.3; Magnesium 1.9 mg/dl (1.8-2.4); Potassium 4.1 mmol/L (3.5-5.1)
[2020-05-22 23:44] LABS: Phosphorus 1.2 mg/dl (2.5-4.9); Troponin I 0.069 ng/ml (0-0.045)
[2020-05-22] MEDS ORDERED: SODIUM CHLORIDE 0.9% 1000ML 1,000 ML IV ONE (23:46)
[2020-05-22] MEDS: MAGNESIUM SULFATE / D5W 1 GM/100 ML BAG IV SCH (23:51)
[2020-05-23] MEDS: MAGNESIUM SULFATE / D5W 1 GM/100 ML BAG IV SCH (01:45)
[2020-05-23 04:08] LABS: Creatinine Clr Calc Pharmacy 42.2 ml/min; Est GFR (African American) 86.1; Est GFR (Non-African American) 74.2
[2020-05-23] MEDS ORDERED: SODIUM PHOSPHATE 3 MMOL/1 ML INFUSION IV STA (04:34)
[2020-05-23] MEDS ORDERED: SODIUM PHOSPHATE 40 MMOL in SODIUM CHLORIDE 0.9% 1000ML 1,000 ML IV ONE (04:45)
--- NOTE | 2020-05-23 06:53 | Orthopedic Progress Note ---
Date of Service May 23, 2020 Assessment & Plan (1) Status post hip hemiarthroplasty: He can be weightbearing as tolerated. He is currently on aspirin for DVT prophylaxis. He is orthopedically stable for discharge when medically ready. Full orthopedic discharge instructions were placed in the discharge summary. He will follow-up with orthopedics in 2 weeks. Present on Admission?: Yes Admission and Anticipated Discharge Date Admission Date: May 21, 2020 Radha Bangura was seen and examined at bedside this morning. He said he is not having too much pain in his hip. He had a abduction pillow in place. He seemed a little bit confused when I woke him up this morning. He has no new complaints. Physical Exam Musculoskeletal: On physical examination of the left hip, the dressing is clean and dry. His leg lengths are equal. There is an abduction pillow in place. He is unable to cooperate with a neurologic examination. Results & Data ([facility]) Vital Signs (Past 12 Hours) Vital Signs Temp Pulse Pulse Pulse Resp BP BP 05/23/20 04:00 117 H 05/23/20 02:43 168 H 05/22/20 23:16 156 H 05/22/20 23:09 122 H 109/57 L 05/22/20 23:03 36.7 C 92 H 20 05/22/20 22:52 135 H 111/65 05/22/20 22:35 126 H 121/62 05/22/20 21:50 05/22/20 19:00 123 H BP Pulse Ox 05/23/20 04:00 05/23/20 02:43 05/22/20 23:16 05/22/20 23:09 05/22/20 23:03 98 05/22/20 22:52 05/22/20 22:35 05/22/20 21:50 107/70 05/22/20 19:00 PG Care Time/CCT Total # of Minutes Spent Total Time Spent with Patient: Total time spent is greater than 50% in coordination of care (as documented) at patient's floor/unit and/or counseling patient: Coding Level of Care Code None Diagnoses Status post hip hemiarthroplasty Z96.649
--- NOTE | 2020-05-23 07:56 | XRay Report ---
XR chest 1V portable HISTORY: Hypoxemic Respiratory Failure COMPARISON: Chest 05/22/2020. FINDINGS: Improvement in the trace left pleural effusion and left basilar airspace opacity. There is mild central pulmonary vascular congestion without overt edema. The heart remains top normal in size. No pneumothorax. Rotated study. IMPRESSION: Improvement in the trace left pleural effusion and left basilar airspace opacity. ACT 112: Negative or not required by law. Electronically signed by: Orlando Snyder M.D. 05/23/2020 7:54 AM
[2020-05-23] MEDS: PIPERACILLIN/TAZOBACTAM 3.375 GM in DEXTROSE 5% 100 ML IV SCH ×3 (08:09→21:39)
[2020-05-23] MEDS: *DUTASTERIDE*ORDER AWAITING ACTION SCH ×3 (08:12→23:11)
[2020-05-23] MEDS: ASCORBIC ACID 500 MG TAB PO SCH (08:13)
[2020-05-23] MEDS: TAMSULOSIN HCL 0.4 MG CAP PO SCH ×2 (08:13→21:30)
[2020-05-23] MEDS: MULTIVITAMIN TAB PO SCH (08:13)
[2020-05-23] MEDS: ASPIRIN 81 MG ECTAB PO SCH ×2 (08:13→21:29)
[2020-05-23] MEDS: ROSUVASTATIN CALCIUM 10 MG TAB PO SCH (08:14)
[2020-05-23] MEDS: DOCUSATE SODIUM 100 MG CAP PO SCH ×2 (08:19→21:28)
[2020-05-23] MEDS: oxyCODONE HCL IR 5 MG TAB (IMMEDIATE RELEASE) PO PRN ×2 (08:19→21:39)
[2020-05-23 08:45] LABS: Hematocrit (blood only) 31.2 % (42-52); Hemoglobin 10.2 g/dL (14.0-18.0); Mean Corpuscular Hemoglobin 31.4 pg (25-34); Mean Corpuscular Hgb Conc 32.7 g/dL (32-36); Mean Platelet Volume 9.1 fL (7.4-10.4); Platelet Count 115 K/uL (130-400); RDW Coefficient of Variation 14.6 % (11.5-14.5); RDW Standard Deviation 51.3 fL (36.4-46.3); Red Blood Count 3.25 M/uL (4.7-6.1); White Blood Count 9.14 K/uL (4.8-10.8)
[2020-05-23 09:11] LABS: BUN Creatinine Ratio 18.9 (10-20); Calcium 7.9 mg/dl (8.5-10.1); Creatinine Clr Calc Pharmacy 50.2 ml/min; Est GFR (African American) 93.6; Est GFR (Non-African American) 80.8; Magnesium 2.2 mg/dl (1.8-2.4)
[2020-05-23 09:21] LABS: Phosphorus 2.9 mg/dl (2.5-4.9); Troponin I 0.048 ng/ml (0-0.045)
--- NOTE | 2020-05-23 11:04 | Hospitalist Progress Note ---
Date of Service May 23, 2020 Assessment & Plan (1) Fracture of femoral neck, left: Mr. Castro is an 84 yo M with a PMHx of cerebral palsy who was transferred from [facility] after sustaining a left femoral neck fracture after a mechanical fall. Orthopedics consulted -- appreciate assistance * POD #2 s/p LEFT hip hemiarthroplasty with Dr. Lora. EBL 250cc. Pre-op h/h 13.9/43.0. H/h dropped to 10.2/31.2 -- likely combination of acute blood loss following surgery as well as dilutional from IVF * Tylenol, morphine prn pain --> I added oxycodone for PO alternative 05/22 * CXR pre-op without acute infiltrate, did have LEFT pulmonary nodule * --> Patient requiring oxygen and crackles on exam with repeat CXR obtained showing possible left lung base consolidation, new from 05/20 and placed on Zosyn empirically for PNA -- continue * PT/OT evaluations pending -- will likely need SNF at discharge and ref sent to [facility] (2) Atrial fibrillation: * Transferred to telemetry evening 05/22 for tachycardia, hypotension for closer monitoring * Flipped into atrial fibrillation up to rate of 180s, given Lopressor IV, replaced phosphorus 1.2 with 40mmol K phos with repeat wnl at 2.9, Mag 1.9 and given 2gm IV with repeat 2.2. NSS 500cc bolus * EKG evening 05/23 with atrial fibrillation, LAD, RBBB, ventricular rate increased by 91bpm * Flipped back into normal sinus at 23:19 * BP improved to 119/65 * Likely patient had issues with this in the past and is at elevated risk for stroke * Cardiology consulted -- appreciate assistance * ECHO ordered to assess LV function -- technically difficult given patient cooperation but LV function appears normal. Mild-moderate aortic regurgitation * Patient would benefit from metoprolol succinate 25mg daily but ordered ECHO to assess LV function * Was going to initiate Xarelto 15mg daily (CM newberry checked, 30$/month) however severe interaction with phenobarbital * Will utilize Coumadin for now given patient on phenobarbital and titrate dose of phenobarbital as discussed with neurology. Once off phenobarbital and out of system, can consider transition to NOAC * INR in AM * Continue to monitor on telemetry (3) Hypoxia: * Of note, patient did have left pulmonary nodule on pre-op CXR * Had been on 4L NC to maintain O2 sat 94% --> weaned off with sats dropping to 88%. Not on home O2. * CXR with possible left lung base consolidation, new from 05/20 * Repeat CXR overnight with improvement * Incentive spirometer * Lactic elevate to 5, repeat trending down -- also with recent surgery and tissue injury contributing to elevated lactic * BCx pending * Zosyn for empiric coverage * sputum culture if patient able to produce * nebs prn * Encouraged incentive spirometer although patient only able to get to 500 per nursing * Currently 98% on 4L NC --> will ask nursing to wean to see how he does this evening * Continue to monitor (4) Benign localized hyperplasia of prostate with urinary obstruction and lower urinary tract symptoms: * Continue dutasteride and tamsulosin when taking po (5) Urinary retention: * St cath x 2 this afternoon * Will need ponce if continues to have issues * Repeat UA following st cath without infection (6) Hyperlipidemia: * Crestor 10mg daily (7) Hx of seizure disorder: * Phenobarbital 32.4mg BID daily * Phenobarb level wnl --> Of note, patient has not had a seizure in 70 years. * Discussed with neurology who recommends decreasing phenobarbital to once daily for a month and then follow up with PCP for further reduction/discontinuation since we will be starting anticoagulation for pAF Will reduce phenobarb to once daily and discontinue this evening's dose (8) Pulmonary nodule: * follow up with pcp vs inpatient pulm consult if continues to remain hypoxic despite above (9) DVT prophylaxis: * ASA 81mg BID Dispo: ref sent to [facility] --> will be inpatient additional 1-2 days given above Admission and Anticipated Discharge Date Admission Date: May 21, 2020 Subjective Patient evaluated this afternoon. He had just completed having ECHO done. Denies any hip pain but he does have some lower abdominal discomfort and states he feels like he has to go to the bathroom. Nursing about to straight cath. Denies fever, chills, chest pain, shortness of breath, cough at this time. Discussed atrial fibrillation on monitor and that cardiology rec for anticoagulation and that we will newberry check prior to starting but that given risk and possibly that he was flipping in and out of this rhythm that his risk for stroke is significantly elevated. Patient agreeable to anticoagulation. Questions/concerns addressed at this time. Review of Systems Review of Systems: All systems reviewed & are unremarkable except as noted in HPI & below Physical Exam Constitutional: WD/WN, vitals as above no acute distress Eyes: + anicteric sclerae and PERRL Neck: normal visual inspection Respiratory: normal respiratory effort; no respiratory distress Auscultation: + crackles (faint crackles posterior lung art); no wheezes Cardiovascular: RRR, no murmur, no edema Gastrointestinal (Abdomen): Inspection/Auscultation: + abdomen distended and normal bowel sounds Percussion/Palpation: + abdomen tender (suprapubic region) and abdomen soft; no guarding Musculoskeletal: dressing to LEFT hip c/d/i non-tender to palpation NVI 2+ pulses pt, dp bilaterally calves non-tender to palpation Skin: warm, dry Neurologic: patellar DTR's 2+ bilat, sensation intact Psychiatric: Orientation: alert, oriented to person, oriented to place and oriented to time Lymphatic: no cervical or axillary lymphadenopathy Results & Data Results & Data ([facility]) Vital Signs (Past 12 Hours) Vital Signs Temp Pulse Pulse Pulse Resp BP BP 05/23/20 07:04 37.6 C H 94 H 16 113/67 05/23/20 04:00 117 H 05/23/20 02:43 168 H 05/22/20 23:16 156 H 05/22/20 23:09 122 H 109/57 L Pulse Ox 05/23/20 07:04 95 05/23/20 04:00 05/23/20 02:43 05/22/20 23:16 05/22/20 23:09 Laboratory Results 05/23/20 05/23/20 05/23/20 Range/Units 14:25 08:31 08:31 WBC 9.14 (4.8-10.8) K/uL RBC 3.25 L (4.7-6.1) M/uL Hgb 10.2 L (14.0-18.0) g/dL Hct 31.2 L (42-52) % MCV 96.0 (80-100) fL MCH 31.4 (25-34) pg MCHC 32.7 (32-36) g/dL RDW Std Deviation 51.3 H (36.4-46.3) fL RDW Coeff of Sara 14.6 H (11.5-14.5) % Plt Count 115 L (130-400) K/uL MPV 9.1 (7.4-10.4) fL Sodium 140 (136-145) mmol/L Potassium 4.0 (3.5-5.1) mmol/L Chloride 111 H (98-107) mmol/L Carbon Dioxide 24 (21-32) mmol/L Anion Gap 5.0 (3-11) BUN 16 (7-18) mg/dl Creatinine 0.86 (0.6-1.4) mg/dl Est Cr Clr Drug Dosing 50.2 ml/min Est GFR ( Amer) 93.6 Est GFR (Non-Af Amer) 80.8 BUN/Creatinine Ratio 18.9 (10-20) Glucose 127 H (70-99) mg/dl Estimat Average Glucose mg/dl Hemoglobin A1c (4.5-5.6) % Lactate (0.4-2.0) mmol/L Calcium 7.9 L (8.5-10.1) mg/dl Phosphorus 2.9 D (2.5-4.9) mg/dl Magnesium 2.2 (1.8-2.4) mg/dl Troponin I 0.048 H* (0-0.045) ng/ml Urine Color [place] Urine Appearance Clear (Clear) Urine pH 5.0 (4.5-7.5) Ur Specific Cha[place] 1.026 (1.000-1.030) Urine Protein 2+ H (Negative) Urine Glucose (UA) Negative (Negative) Urine Ketones Negative (Negative) Urine Blood 3+ H (Negative) Urine Nitrite Negative (Negative) Urine Bilirubin Negative (Negative) Urine Urobilinogen Negative (Negative) Ur Leukocyte Esterase 1+ H (Negative) Urine WBC (Auto) 1-5 (0-5) /hpf Urine RBC (Auto) >30 H (0-4) /hpf U Hyaline Cast (Auto) 1-5 (0-5) /lpf U Epithel Cells (Auto) 0-5 (0-5) /lpf Urine Bacteria (Auto) Negative (Negative) 05/23/20 05/23/20 05/22/20 Range/Units 03:20 03:06 22:48 WBC (4.8-10.8) K/uL RBC (4.7-6.1) M/uL Hgb (14.0-18.0) g/dL Hct (42-52) % MCV (80-100) fL MCH (25-34) pg MCHC (32-36) g/dL RDW Std Deviation (36.4-46.3) fL RDW Coeff of Sara (11.5-14.5) % Plt Count (130-400) K/uL MPV (7.4-10.4) fL Sodium 140 (136-145) mmol/L Potassium 4.1 (3.5-5.1) mmol/L Chloride 108 H (98-107) mmol/L Carbon Dioxide 25 (21-32) mmol/L Anion Gap 7.0 (3-11) BUN 21 H (7-18) mg/dl Creatinine 0.95 1.07 (0.6-1.4) mg/dl Est Cr Clr Drug Dosing 42.2 37.5 ml/min Est GFR ( Amer) 86.1 74.5 Est GFR (Non-Af Amer) 74.2 64.3 BUN/Creatinine Ratio 19.4 (10-20) Glucose 131 H (70-99) mg/dl Estimat Average Glucose 105 mg/dl Hemoglobin A1c 5.3 (4.5-5.6) % Lactate (0.4-2.0) mmol/L Calcium 8.3 L (8.5-10.1) mg/dl Phosphorus 1.2 L* (2.5-4.9) mg/dl Magnesium 1.9 (1.8-2.4) mg/dl Troponin I 0.069 H* (0-0.045) ng/ml Urine Color Urine Appearance (Clear) Urine pH (4.5-7.5) Ur Specific [place] (1.000-1.030) Urine Protein (Negative) Urine Glucose (UA) (Negative) Urine Ketones (Negative) Urine Blood (Negative) Urine Nitrite (Negative) Urine Bilirubin (Negative) Urine Urobilinogen (Negative) Ur Leukocyte Esterase (Negative) Urine WBC (Auto) (0-5) /hpf Urine RBC (Auto) (0-4) /hpf U Hyaline Cast (Auto) (0-5) /lpf U Epithel Cells (Auto) (0-5) /lpf Urine Bacteria (Auto) (Negative) 05/22/20 Range/Units 18:55 WBC (4.8-10.8) K/uL RBC (4.7-6.1) M/uL Hgb (14.0-18.0) g/dL Hct (42-52) % MCV (80-100) fL MCH (25-34) pg MCHC (32-36) g/dL RDW Std Deviation (36.4-46.3) fL RDW Coeff of Sara (11.5-14.5) % Plt Count (130-400) K/uL MPV (7.4-10.4) fL Sodium (136-145) mmol/L Potassium (3.5-5.1) mmol/L Chloride (98-107) mmol/L Carbon Dioxide (21-32) mmol/L Anion Gap (3-11) BUN (7-18) mg/dl Creatinine (0.6-1.4) mg/dl Est Cr Clr Drug Dosing ml/min Est GFR ( Amer) Est GFR (Non-Af Amer) BUN/Creatinine Ratio (10-20) Glucose (70-99) mg/dl Estimat Average Glucose mg/dl Hemoglobin A1c (4.5-5.6) % Lactate 4.4 H* (0.4-2.0) mmol/L Calcium (8.5-10.1) mg/dl Phosphorus (2.5-4.9) mg/dl Magnesium (1.8-2.4) mg/dl Troponin I (0-0.045) ng/ml Urine Color Urine Appearance (Clear) Urine pH (4.5-7.5) Ur Specific [place] (1.000-1.030) Urine Protein (Negative) Urine Glucose (UA) (Negative) Urine Ketones (Negative) Urine Blood (Negative) Urine Nitrite (Negative) Urine Bilirubin (Negative) Urine Urobilinogen (Negative) Ur Leukocyte Esterase (Negative) Urine WBC (Auto) (0-5) /hpf Urine RBC (Auto) (0-4) /hpf U Hyaline Cast (Auto) (0-5) /lpf U Epithel Cells (Auto) (0-5) /lpf Urine Bacteria (Auto) (Negative) Diagnostic Findings CXR IMPRESSION: 1. Improvement in the trace left pleural effusion and left basilar airspace opacity. 2. Suspect a small left pleural effusion. ECHO PG Care Time/CCT Total # of Minutes Spent Total Time Spent with Patient: Total time spent is greater than 50% in coordination of care (as documented) at patient's floor/unit and/or counseling patient: Coding Level of Care Code 62571 Subseq Hosp Care Lvl 3 Diagnoses Fracture of femoral neck, left S72.002A Atrial fibrillation I48.91 Hypoxia R09.02 Benign localized hyperplasia of prostate with urinary obstruction and lower urinary tract symptoms N40.1; N13.9 Urinary retention R33.9 Hyperlipidemia E78.5 Hx of seizure disorder Z86.69 Pulmonary nodule R91.1 DVT prophylaxis Z29.9
[2020-05-23 11:43] LABS: Estimated Average Glucose 105 mg/dl; Hemoglobin A1C 5.3 % (4.5-5.6)
--- NOTE | 2020-05-23 12:43 | Cardiology Consultation ---
Date of Consultation May 23, 2020 Assessment & Plan (1) Atrial fibrillation: I reviewed the telemetry suggests that the rhythm overnight was atrial fibrillation. Patient was unaware of the arrhythmia or any tachycardia. This very likely he has had other episodes of atrial fibrillation previously, and this 1 was simply capture due to telemetry monitoring subsequent to his operation. His heart rate was high at the time of his arrhythmia. He would likely benefit from a daily dose of a beta-giselle such as metoprolol succinate 25 mg. I think we can obtain an echocardiogram in order to evaluate chamber dimensions in any sign of LV dysfunction. This may alter our medical therapy if it is abnormal. The primary concern is his elevated risk of stroke. Given his advanced age he likely benefit from systemic anticoagulation in the setting of documented atrial fibrillation. Normal and he would be a good candidate for either Xarelto 15 mg daily or Eliquis 2.5 mg twice daily. History of Present Illness Reason for Consultation: Tachycardia Requesting Physician: Lisa Attending Physician: Carlos Melo MD History of Present Illness The patient is an 84-year-old gentleman with a history of cerebral palsy who recently suffered a mechanical fall resulting in a left femoral neck fracture. This required surgical intervention which appear to have gone without complication. However, on telemetry monitoring subsequent to his operation, the patient was noted to have a tachycardia this occurred last evening around 10:00 p.m.. The patient was unaware of any arrhythmia, palpitation or tachycardia. He does not report a history of heart disease. He does not report a history of palpitation or tachycardia. He was not familiar with the term atrial fibrillation or SVT. He is able to ambulate with a walker. He states that occasionally he will have to rest due to dyspnea. He does not seem to have exertional chest pain is dyspnea peers somewhat mild. He does not report chest pain at other times. He did not report symptoms of dizziness or lightheadedness. He cannot recall any episodes of syncope. He cannot recall the exact mechanism of his recent fall. The patient lives independently with his sister. Allergies Allergy/AdvReac Type Severity Reaction Status Date / Time No Known Drug Allergies Allergy Verified 03/02/20 12:23 Home Medications Home Medications Medication Instructions Recorded Confirmed Type ascorbic acid (vitamin C) 500 mg 500 mg PO .TAKE 1 TABLET DAILY. 03/01/20 05/21/20 History tablet aspirin 81 mg tablet,delayed 81 mg PO .TAKE 1 TABLET DAILY. 03/01/20 05/21/20 History release calcium polycarbophil 625 mg tablet 625 mg PO .TAKE 2 TABLET Bedtime 03/01/20 05/21/20 History ibuprofen 200 mg tablet 200 mg PO .TAKE 1 TABLET Every 4 03/01/20 05/21/20 History hours PRN phenobarbital 32.4 mg tablet 32.4 mg PO .TAKE 1 TABLET TWICE 03/01/20 05/21/20 History DAILY. rosuvastatin 10 mg tablet 10 mg PO .TAKE 1 TABLET DAILY. 03/01/20 05/21/20 History dutasteride 0.5 mg capsule 0.5 mg PO DAILY #90 cap 03/02/20 05/21/20 Rx tamsulosin 0.4 mg capsule 0.4 mg PO BID 90 Days #180 cap 03/02/20 05/21/20 Rx Patient History Medical History Bilateral inguinal hernia BPH (benign prostatic hyperplasia) Bronchitis Cerebral palsy Cough Diverticula of colon Epistaxis 06/23/18 Femur neck fracture 05/20/20 History of seizure as Hypercholesterolemia Hyperlipidemia Sepsis 01/24/18 Surgical History Hx of hernia repair Status post hip hemiarthroplasty (~05/2020) Family History Grandfather No problems noted. Father COPD (chronic obstructive pulmonary disease) Cardiac disorder Mother Cardiac disorder Breast cancer Other Nephrolithiasis Seizures Social History Smoking Status: Never smoker Hx Alcohol Use: No Hx Substance Use: No Preferred Language: Tamaz[place] Communication Ability: Effective Unscrambler Required: No Beliefs That Will Affect Care: None marital status: Single Current Living Situation: Family Current Living Situation Comment: with sister current occupational status: retired Other Information That Helps Us Care for You: No Feels Safe at Home: Yes Safety Concerns: Feels Safe At This Time Review of Systems Review of Systems: All systems reviewed & are unremarkable except as noted in HPI & below Physical Exam Physical Exam: The patient is alert and oriented. Mood and affect appeared normal. He answered all questions appropriately. He kept his eyes closed for most of the visit. HEENT: Pupils are equal and reactive to light and accommodation. Extraocular movements are intact. The sclerae are anicteric. Neuro: Cranial nerves intact Neck: Patient's neck is supple. He has palpable carotid pulses bilaterally without bruits on auscultation. There is no evidence of jugular venous distention. The thyroid is not enlarged. Lungs: Clear to auscultation bilaterally. He has good air movement without use of accessory muscles. No rales wheezes or rhonchi. Some coughing Cardiac: Heart demonstrates a regular rate and rhythm. Normal S1 and S2. No murmurs on examination. Pulses: The patient has palpable radial pulses bilaterally that are equal in intensity Extremities: There was no evidence of hypoperfusion. There is no cyanosis or clubbing. Some spasticity of the arms. There is no edema. Skin: I did not appreciate any rashes on examination today. Results & Data ([facility]) Vital Signs (Past 12 Hours) Vital Signs Temp Pulse Pulse Pulse Resp BP BP 05/23/20 11:13 37.1 C 88 16 101/58 L 05/23/20 08:00 97 H 05/23/20 07:04 37.6 C H 94 H 16 113/67 05/23/20 04:00 117 H 05/23/20 02:43 168 H Pulse Ox 05/23/20 11:13 94 05/23/20 08:00 05/23/20 07:04 95 05/23/20 04:00 05/23/20 02:43 Laboratory Results Abnormal Lab Results 05/22/20 05/22/20 05/22/20 16:50 16:55 18:55 WBC RBC Hgb Hct MCV MCH MCHC RDW Std Deviation RDW Coeff of Sara Plt Count MPV Sodium Potassium Chloride Carbon Dioxide Anion Gap BUN Creatinine Est Cr Clr Drug Dosing Est GFR ( Amer) Est GFR (Non-Af Amer) BUN/Creatinine Ratio Glucose Estimat Average Glucose Hemoglobin A1c Lactate 5.9 H* 4.4 H* Calcium Phosphorus Magnesium Troponin I Urine Color Dark Yellow Urine Appearance Cloudy A Urine pH 5.0 Ur Specific [place] 1.029 Urine Protein 1+ H Urine Glucose (UA) Negative Urine Ketones Trace H Urine Blood 3+ H Urine Nitrite Negative Urine Bilirubin Negative Urine Urobilinogen Negative Ur Leukocyte Esterase Trace H Urine WBC (Auto) 10-30 H Urine RBC (Auto) >30 H U Hyaline Cast (Auto) 1-5 U Epithel Cells (Auto) 20-30 H Urine Bacteria (Auto) Negative WBC Casts 1-5 H 05/22/20 05/23/20 05/23/20 22:48 03:06 03:20 WBC RBC Hgb Hct MCV MCH MCHC RDW Std Deviation RDW Coeff of Sara Plt Count MPV Sodium 140 Potassium 4.1 Chloride 108 H Carbon Dioxide 25 Anion Gap 7.0 BUN 21 H Creatinine 1.07 0.95 Est Cr Clr Drug Dosing 37.5 42.2 Est GFR ( Amer) 74.5 86.1 Est GFR (Non-Af Amer) 64.3 74.2 BUN/Creatinine Ratio 19.4 Glucose 131 H Estimat Average Glucose 105 Hemoglobin A1c 5.3 Lactate Calcium 8.3 L Phosphorus 1.2 L* Magnesium 1.9 Troponin I 0.069 H* Urine Color Urine Appearance Urine pH Ur Specific [place] Urine Protein Urine Glucose (UA) Urine Ketones Urine Blood Urine Nitrite Urine Bilirubin Urine Urobilinogen Ur Leukocyte Esterase Urine WBC (Auto) Urine RBC (Auto) U Hyaline Cast (Auto) U Epithel Cells (Auto) Urine Bacteria (Auto) WBC Casts 05/23/20 05/23/20 08:31 08:31 WBC 9.14 RBC 3.25 L Hgb 10.2 L Hct 31.2 L MCV 96.0 MCH 31.4 MCHC 32.7 RDW Std Deviation 51.3 H RDW Coeff of Sara 14.6 H Plt Count 115 L MPV 9.1 Sodium 140 Potassium 4.0 Chloride 111 H Carbon Dioxide 24 Anion Gap 5.0 BUN 16 Creatinine 0.86 Est Cr Clr Drug Dosing 50.2 Est GFR ( Amer) 93.6 Est GFR (Non-Af Amer) 80.8 BUN/Creatinine Ratio 18.9 Glucose 127 H Estimat Average Glucose Hemoglobin A1c Lactate Calcium 7.9 L Phosphorus 2.9 D Magnesium 2.2 Troponin I 0.048 H* Urine Color Urine Appearance Urine pH Ur Specific [place] Urine Protein Urine Glucose (UA) Urine Ketones Urine Blood Urine Nitrite Urine Bilirubin Urine Urobilinogen Ur Leukocyte Esterase Urine WBC (Auto) Urine RBC (Auto) U Hyaline Cast (Auto) U Epithel Cells (Auto) Urine Bacteria (Auto) WBC Casts PG Care Time/CCT Total # of Minutes Spent Total Time Spent with Patient: Total time spent is greater than 50% in coordination of care (as documented) at patient's floor/unit and/or counseling patient: Coding Level of Care Code 09964 Initial Inpt Care Lvl 3 Diagnoses Atrial fibrillation I48.91
[2020-05-23 14:59] LABS: Appearance Urine Clear (Clear); Bacteria Urine Automated Negative (Negative); Bilirubin Urine Negative (Negative); Blood Urine 3+ (Negative); Color Urine Orange; Epithelial Cell Urine Auto 0-5 /lpf (0-5); Glucose Urine UA Negative (Negative); Ketones Urine Negative (Negative); Leukocyte Esterase Urine 1+ (Negative); Nitrite Urine Negative (Negative); Protein Urine 2+ (Negative); RBC Urine Automated >30 /hpf (0-4); Specific Gravity Urine 1.026 (1.000-1.030); Urobilinogen Urine Negative (Negative)
--- NOTE | 2020-05-23 17:19 | XCELERA ---
[id number]
--- NOTE | 2020-05-23 18:08 | Electrocardiogram Report ---
Test Reason : Blood Pressure : / mmHG Vent. Rate : 165 BPM Atrial Rate : 156 BPM P-R Int : 000 ms QRS Dur : 122 ms QT Int : 336 ms P-R-T Axes : 000 -62 009 degrees QTc Int : 556 ms Atrial fibrillation Left axis deviation Right bundle branch block Abnormal ECG When compared with ECG of 21-MAY-2020 10:14, Vent. rate has increased BY 91 BPM Confirmed by Raymond Cole [id number] on 05/23/2020 6:07:37 PM Referred By: Abhishek Albright Confirmed By:Braxton Cole
[2020-05-23] MEDS ORDERED: bisacodyL 5 MG TABEC PO ONE (18:53)
[2020-05-23] MEDS: POLYETHYLENE (MIRALAX) 17 GM PACK PO SCH (20:03)
[2020-05-23] MEDS: WARFARIN SOD 5 MG TAB PO SCH (20:03)
[2020-05-23] MEDS ORDERED: LIDOCAINE 2% JELLY 5 ML TUBE ONE (21:04)
[2020-05-23] MEDS: CALCIUM POLYCARBOPHIL 625MG TAB PO SCH (21:29)
[2020-05-23] MEDS: SENNA 8.6 MG TAB PO SCH (21:30)
[2020-05-24] MEDS: oxyCODONE HCL IR 5 MG TAB (IMMEDIATE RELEASE) PO PRN (03:53)
[2020-05-24] MEDS: PIPERACILLIN/TAZOBACTAM 3.375 GM in DEXTROSE 5% 100 ML IV SCH ×3 (05:28→21:43)
[2020-05-24 07:04] LABS: Basophils # (auto) 0.01 K/uL (0-0.2); Basophils % (auto) 0.1 %; Eosinophils # (auto) 0.46 K/uL (0-0.5); Eosinophils % (auto) 6.1 %; Hemoglobin 8.7 g/dL (14.0-18.0); Immature Granulocytes # (auto) 0.01 K/uL (0.00-0.02); Immature Granulocytes % (auto) 0.1 %; Lymphocytes # (auto) 1.25 K/uL (1.2-3.4); Lymphocytes % (auto) 16.5 %; Mean Corpuscular Hemoglobin 31.6 pg (25-34); Mean Corpuscular Hgb Conc 33.5 g/dL (32-36); Mean Corpuscular Volume 94.5 fL (80-100); Monocytes # (auto) 0.45 K/uL (0.11-0.59); Monocytes % (auto) 5.9 %; Neutrophils # (auto) 5.39 K/uL (1.4-6.5); Neutrophils % (auto) 71.3 %; Platelet Count 114 K/uL (130-400); RDW Coefficient of Variation 14.7 % (11.5-14.5); RDW Standard Deviation 50.8 fL (36.4-46.3); Red Blood Count 2.75 M/uL (4.7-6.1); White Blood Count 7.57 K/uL (4.8-10.8)
[2020-05-24 07:17] LABS: INR 1.2 (0.9-1.1); Prothrombin Time 12.3 Seconds (9.0-12.0)
[2020-05-24 07:36] LABS: Albumin Level 2.1 gm/dl (3.4-5.0); BUN Creatinine Ratio 18.2 (10-20); Calcium 7.4 mg/dl (8.5-10.1); Creatinine Clr Calc Pharmacy 60.3 ml/min; Est GFR (African American) 100.1; Est GFR (Non-African American) 86.4; Magnesium 1.9 mg/dl (1.8-2.4); Potassium 3.7 mmol/L (3.5-5.1)
[2020-05-24 07:43] LABS: Albumin Globulin Ratio 0.7 (0.9-2); Bilirubin,Total 0.5 mg/dl (0.2-1); Globulin 2.9 gm/dl (2.5-4.0)
[2020-05-24] MEDS: ACETAMINOPHEN 500 MG TAB PO PRN ×2 (08:15→23:35)
[2020-05-24] MEDS: ROSUVASTATIN CALCIUM 10 MG TAB PO SCH (08:16)
[2020-05-24] MEDS: *DUTASTERIDE*ORDER AWAITING ACTION SCH (08:16)
[2020-05-24] MEDS: ASCORBIC ACID 500 MG TAB PO SCH (08:16)
[2020-05-24] MEDS: MULTIVITAMIN TAB PO SCH (08:16)
[2020-05-24] MEDS: TAMSULOSIN HCL 0.4 MG CAP PO SCH ×2 (08:17→21:46)
[2020-05-24] MEDS: ASPIRIN 81 MG ECTAB PO SCH ×2 (08:17→21:46)
[2020-05-24] MEDS ORDERED: POTASSIUM PHOS 3 MMOL/1 ML INFUSION IV STA (08:20)
[2020-05-24] MEDS: POLYETHYLENE (MIRALAX) 17 GM PACK PO SCH (08:20)
[2020-05-24] MEDS: DOCUSATE SODIUM 100 MG CAP PO SCH ×2 (08:21→21:45)
[2020-05-24] MEDS ORDERED: MAGNESIUM SULFATE / D5W 1 GM/100 ML BAG IV ONE (08:30)
[2020-05-24] MEDS ORDERED: RIVAROXABAN 15 MG TAB PO SCH (09:00)
[2020-05-24] MEDS ORDERED: POTASSIUM PHOSPHATE 30 MMOL in SODIUM CHLORIDE 0.9% 500 ML IV ONE (09:00)
--- NOTE | 2020-05-24 09:26 | Hospitalist Progress Note ---
Date of Service May 24, 2020 Assessment & Plan (1) Fracture of femoral neck, left: Mr. Castro is an 84 yo M with a PMHx of cerebral palsy who was transferred from [facility] after sustaining a left femoral neck fracture after a mechanical fall. Orthopedics consulted -- appreciate assistance * POD #3 s/p LEFT hip hemiarthroplasty with Dr. Lora. EBL 250cc. Pre-op h/h 13.9/43.0. --> will need f/u 2 weeks * Tylenol, morphine prn pain --> I added oxycodone for PO alternative 05/22 * CXR pre-op without acute infiltrate, did have LEFT pulmonary nodule * --> Patient requiring oxygen and crackles on exam with repeat CXR obtained showing possible left lung base consolidation, new from 05/20 and placed on Zosyn empirically for PNA -- continue but will likely transition to Augmentin in AM * PT/OT evaluations with rec for SNF -- ref sent to [facility] CM following * H/h dropped significantly since procedure to 8.7 from 13.9 -- acute blood loss from surgery as well as IVF since procedure including boluses and now initiated on Coumadin for afib. LDH elevated 276. No savita blood noted in most recent BM although was unable to obtain sample for fecal occult. Most recent UA from st cath with 3+ blood, >30 RBC although suspect trauma from catheterization but does have some proteinuria. Consider nephrology consult Will obtain iron studies/b12/folate in AM although MCV 94.5 * CBC in AM (2) Atrial fibrillation: * Transferred to telemetry evening 05/22 for tachycardia, hypotension for closer monitoring * Flipped into atrial fibrillation up to rate of 180s, given Lopressor IV, replaced phosphorus 1.2 with 40mmol K phos with repeat wnl at 2.9, Mag 1.9 and given 2gm IV with repeat 2.2. NSS 500cc bolus * EKG evening 05/23 with atrial fibrillation, LAD, RBBB, ventricular rate increased by 91bpm and flipped back into NSR at 23:19 * Cardiology consulted -- appreciate assistance -- likely patient had issues with this in the past and is at elevated risk for stroke * ECHO ordered to assess LV function -- technically difficult given patient cooperation but LV function appears normal. Mild-moderate aortic regurgitation * Initiated on metoprolol succinate 25mg PO daily --> has remained in NSR with PACs 80-90s throughout the day * Was going to initiate Xarelto 15mg daily (ZULEIMA newberry checked, 30$/month) however severe interaction with phenobarbital * Will utilize Coumadin 5mg PO daily for now given patient on phenobarbital and titrate dose of phenobarbital as discussed with neurology. Once off phenobarbital and out of system, can consider transition to NOAC --> will need f/u with coag clinic. CM aware. * Continue Coumadin 5mg PO * INR subtherapeutic at 1.2 --> repeat in AM -- expect rise tomorrow as initiated evening 05/23 * Continue to monitor on telemetry (3) Hypoxia: Of note, patient did have left pulmonary nodule on pre-op CXR -- will need f/u outpt * Had been on 4L NC to maintain O2 sat 94% --> weaned off with sats dropping to 88%. Not on home O2. * CXR with possible left lung base consolidation, new from 05/20 * Repeat CXR overnight 05/23 with improvement. Repeat today unchanged. * Incentive spirometer encouraged * Continuing Zosyn (on day 3 of therapy) * BCx NGTD -- follow * sputum culture if patient able to produce * nebs prn changed to scheduled * added flutter valve * currently 96% on 3.5L NC --> wean to maintain O2 sat >90% * Continue to monitor * will discuss with pulmonary team in AM if needed (4) Pneumonia: * left lobe as above. continue zosyn, neb, flutter valve. +/- pulm in AM * supplemental O2 as needed * may need o2 at discharge short term at rehab until resolution (5) Benign localized hyperplasia of prostate with urinary obstruction and lower urinary tract symptoms: * Continue dutasteride and tamsulosin when taking po * Now with ponce --> will need to monitor for retention once d/c'd * UO acceptable (6) Urinary retention: * St cath x 2 and ended up requiring ponce catheter * UO acceptable -- monitor for retention once d/c'd (7) Hyperlipidemia: * Crestor 10mg daily (8) Hx of seizure disorder: * Phenobarbital 32.4mg BID daily * Phenobarb level wnl --> Of note, patient has not had a seizure in 70 years. * Discussed with neurology who recommends decreasing phenobarbital to once daily for a month and then follow up with PCP for further reduction/discontinuation since we will be starting anticoagulation for pAF Reduced phenobarb to once daily 05/23 and will need further titration/follow-up with PCP outpt (9) Pulmonary nodule: * follow up with pcp vs inpatient pulm consult if continues to remain hypoxic despite above (10) Acute blood loss anemia: * As above (11) Hypophosphatemia: * Phos low at 1.2 on 05/22 -- ordered 40mmol kphos IV * Repeat up to 2.9 although dropped again to 2.0 --> ordered additional IV replacement * Repeat phos in AM (12) DVT prophylaxis: * ASA 81mg BID * SCDs * Coumadin as above --> subtherapeutic currently at 1.2. Repeat INR in AM Dispo: ref sent to [facility] --> will be inpatient additional 1-2 days given above Admission and Anticipated Discharge Date Admission Date: May 21, 2020 Subjective Patient evaluated this afternoon. Some discomfort to left him when getting into chair but is improved with pain medication. Discussed anticoagulation and titrating his phenobarbital so that we can safely transition him to a NOAC. Patient req this information to be relayed to his sister as she helps him with everything and will better understand the changes. He does note a cough today but denies production of sputum. Discussed that we will ordered scheduled nebulizers and flutter valve and if he is able to cough up anything that we would like this to be sent down to the lab for analysis. Patient denies fever, chills, chest pain, shortness of breath (except with exertion), abdominal pain, dysuria. He states he had a BM on the bedpan this morning and lower abdominal pain resolved since insertion of Ponce. Discussed he has remained in normal rhythm on telemetry and that we started him on metoprolol to be continued at discharge. Review of Systems Review of Systems: All systems reviewed & are unremarkable except as noted in HPI & below Physical Exam Constitutional: WD/WN, vitals as above no acute distress Eyes: + anicteric sclerae and PERRL Neck: normal visual inspection Respiratory: normal respiratory effort; no respiratory distress Auscultation: + crackles (faint crackles posterior lung art); no wheezes Cardiovascular: RRR, no murmur, no edema Gastrointestinal (Abdomen): Inspection/Auscultation: normal bowel sounds Percussion/Palpation: abdomen soft; abdomen nontender and no guarding Musculoskeletal: dressing to LEFT hip c/d/i non-tender to palpation NVI 2+ pulses pt, dp bilaterally calves non-tender to palpation Neurologic: patellar DTR's 2+ bilat, sensation intact Psychiatric: Orientation: alert, oriented to person, oriented to place and oriented to time Genitourinary: ponce with concentrated yellow urine Lymphatic: no cervical or axillary lymphadenopathy Results & Data Results & Data ([facility]) Vital Signs (Past 12 Hours) Vital Signs Temp Pulse Pulse Pulse Resp BP Pulse Ox 05/24/20 07:21 96 H 05/24/20 07:01 37.0 C 85 19 106/63 91 05/24/20 03:40 37.5 C 94 H 20 117/67 91 05/24/20 00:22 91 05/23/20 23:45 106 H 05/23/20 23:06 37.3 C 101 H 20 108/67 91 Laboratory Results 05/24/20 05/24/20 05/24/20 Range/Units 06:33 06:33 06:33 WBC 7.57 (4.8-10.8) K/uL RBC 2.75 L (4.7-6.1) M/uL Hgb 8.7 L (14.0-18.0) g/dL Hct 26.0 L (42-52) % MCV 94.5 (80-100) fL MCH 31.6 (25-34) pg MCHC 33.5 (32-36) g/dL RDW Std Deviation 50.8 H (36.4-46.3) fL RDW Coeff of Sara 14.7 H (11.5-14.5) % Plt Count 114 L (130-400) K/uL MPV 9.0 (7.4-10.4) fL Immature Gran % (Auto) 0.1 % Neut % (Auto) 71.3 % Lymph % (Auto) 16.5 % [place] % (Auto) 5.9 % Eos % (Auto) 6.1 % Baso % (Auto) 0.1 % Neut # (Auto) 5.39 (1.4-6.5) K/uL Lymph # (Auto) 1.25 (1.2-3.4) K/uL [place] # (Auto) 0.45 (0.11-0.59) K/uL Eos # (Auto) 0.46 (0-0.5) K/uL Baso # (Auto) 0.01 (0-0.2) K/uL Immature Gran # (Auto) 0.01 (0.00-0.02) K/uL PT 12.3 H (9.0-12.0) Seconds INR 1.2 H (0.9-1.1) Sodium 138 (136-145) mmol/L Potassium 3.7 (3.5-5.1) mmol/L Chloride 109 H (98-107) mmol/L Carbon Dioxide 25 (21-32) mmol/L Anion Gap 5.0 (3-11) BUN 13 (7-18) mg/dl Creatinine 0.73 (0.6-1.4) mg/dl Est Cr Clr Drug Dosing 60.3 ml/min Est GFR ( Amer) 100.1 Est GFR (Non-Af Amer) 86.4 BUN/Creatinine Ratio 18.2 (10-20) Glucose 114 H (70-99) mg/dl Estimat Average Glucose mg/dl Hemoglobin A1c (4.5-5.6) % Calcium 7.4 L (8.5-10.1) mg/dl Phosphorus 2.0 L (2.5-4.9) mg/dl Magnesium 1.9 (1.8-2.4) mg/dl Total Bilirubin 0.5 (0.2-1) mg/dl AST 42 H (15-37) U/L ALT 29 (12-78) U/L Alkaline Phosphatase 46 (45-117) U/L Total Protein 5.0 L (6.4-8.2) gm/dl Albumin 2.1 L (3.4-5.0) gm/dl Globulin 2.9 (2.5-4.0) gm/dl Albumin/Globulin Ratio 0.7 L (0.9-2) TSH (0.300-4.500) uIu/ml Urine Color Urine Appearance (Clear) Urine pH (4.5-7.5) Ur Specific [place] (1.000-1.030) Urine Protein (Negative) Urine Glucose (UA) (Negative) Urine Ketones (Negative) Urine Blood (Negative) Urine Nitrite (Negative) Urine Bilirubin (Negative) Urine Urobilinogen (Negative) Ur Leukocyte Esterase (Negative) Urine WBC (Auto) (0-5) /hpf Urine RBC (Auto) (0-4) /hpf U Hyaline Cast (Auto) (0-5) /lpf U Epithel Cells (Auto) (0-5) /lpf Urine Bacteria (Auto) (Negative) 05/23/20 05/23/20 05/23/20 Range/Units 14:25 08:31 03:06 WBC (4.8-10.8) K/uL RBC (4.7-6.1) M/uL Hgb (14.0-18.0) g/dL Hct (42-52) % MCV (80-100) fL MCH (25-34) pg MCHC (32-36) g/dL RDW Std Deviation (36.4-46.3) fL RDW Coeff of Sara (11.5-14.5) % Plt Count (130-400) K/uL MPV (7.4-10.4) fL Immature Gran % (Auto) % Neut % (Auto) % Lymph % (Auto) % [place] % (Auto) % Eos % (Auto) % Baso % (Auto) % Neut # (Auto) (1.4-6.5) K/uL Lymph # (Auto) (1.2-3.4) K/uL [place] # (Auto) (0.11-0.59) K/uL Eos # (Auto) (0-0.5) K/uL Baso # (Auto) (0-0.2) K/uL Immature Gran # (Auto) (0.00-0.02) K/uL PT (9.0-12.0) Seconds INR (0.9-1.1) Sodium (136-145) mmol/L Potassium (3.5-5.1) mmol/L Chloride (98-107) mmol/L Carbon Dioxide (21-32) mmol/L Anion Gap (3-11) BUN (7-18) mg/dl Creatinine (0.6-1.4) mg/dl Est Cr Clr Drug Dosing ml/min Est GFR ( Amer) Est GFR (Non-Af Amer) BUN/Creatinine Ratio (10-20) Glucose (70-99) mg/dl Estimat Average Glucose 105 mg/dl Hemoglobin A1c 5.3 (4.5-5.6) % Calcium (8.5-10.1) mg/dl Phosphorus (2.5-4.9) mg/dl Magnesium (1.8-2.4) mg/dl Total Bilirubin (0.2-1) mg/dl AST (15-37) U/L ALT (12-78) U/L Alkaline Phosphatase (45-117) U/L Total Protein (6.4-8.2) gm/dl Albumin (3.4-5.0) gm/dl Globulin (2.5-4.0) gm/dl Albumin/Globulin Ratio (0.9-2) TSH 1.690 (0.300-4.500) uIu/ml Urine Color Will Urine Appearance Clear (Clear) Urine pH 5.0 (4.5-7.5) Ur Specific [place] 1.026 (1.000-1.030) Urine Protein 2+ H (Negative) Urine Glucose (UA) Negative (Negative) Urine Ketones Negative (Negative) Urine Blood 3+ H (Negative) Urine Nitrite Negative (Negative) Urine Bilirubin Negative (Negative) Urine Urobilinogen Negative (Negative) Ur Leukocyte Esterase 1+ H (Negative) Urine WBC (Auto) 1-5 (0-5) /hpf Urine RBC (Auto) >30 H (0-4) /hpf U Hyaline Cast (Auto) 1-5 (0-5) /lpf U Epithel Cells (Auto) 0-5 (0-5) /lpf Urine Bacteria (Auto) Negative (Negative) Diagnostic Findings CXR PG Care Time/CCT Total # of Minutes Spent Total Time Spent with Patient: Total time spent is greater than 50% in coordination of care (as documented) at patient's floor/unit and/or counseling patient: Coding Level of Care Code 66480 Subseq Hosp Care Lvl 3 Diagnoses Fracture of femoral neck, left S72.002A Atrial fibrillation I48.91 Hypoxia R09.02 Pneumonia J18.9 Benign localized hyperplasia of prostate with urinary obstruction and lower urinary tract symptoms N40.1; N13.9 Urinary retention R33.9 Hyperlipidemia E78.5 Hx of seizure disorder Z86.69 Pulmonary nodule R91.1 Acute blood loss anemia D62 Hypophosphatemia E83.39 DVT prophylaxis Z29.9
--- NOTE | 2020-05-24 10:58 | XRay Report ---
XR chest 1V portable HISTORY: Shortness of breath. Pneumonia. Follow-up. COMPARISON: Chest 05/22/2020. FINDINGS: The heart remains borderline enlarged. Mild diffuse interstitial thickening persists. Left basilar airspace opacity and a trace left pleural effusion are again noted. This is not significantly changed. No new focal lung consolidations identified. No acute rib fractures. IMPRESSION: No significant change in the trace left pleural effusion and left base airspace opacity. ACT 112: Negative or not required by law. Electronically signed by: Orlando Snyder M.D. 05/24/2020 10:57 AM
[2020-05-24] MEDS: METOPROLOL SUCC 25MG EXT REL TAB PO SCH (13:08)
[2020-05-24] MEDS ORDERED: LEVALBUTEROL HCL 0.63 MG/3 ML NEB NEB SCH (14:00)
[2020-05-24] MEDS: WARFARIN SOD 5 MG TAB PO SCH (16:20)
[2020-05-24] MEDS: LEVALBUTEROL HCL 0.63 MG/3 ML NEB NEB SCH (18:59)
[2020-05-24] MEDS: SENNA 8.6 MG TAB PO SCH (21:46)
[2020-05-24] MEDS: CALCIUM POLYCARBOPHIL 625MG TAB PO SCH (21:46)
[2020-05-25] MEDS: PIPERACILLIN/TAZOBACTAM 3.375 GM in DEXTROSE 5% 100 ML IV SCH (05:52)
[2020-05-25 06:57] LABS: Basophils # (auto) 0.01 K/uL (0-0.2); Basophils % (auto) 0.2 %; Eosinophils # (auto) 0.73 K/uL (0-0.5); Eosinophils % (auto) 11.9 %; Hematocrit (blood only) 26.7 % (42-52); Hemoglobin 9.1 g/dL (14.0-18.0); Immature Granulocytes # (auto) 0.01 K/uL (0.00-0.02); Immature Granulocytes % (auto) 0.2 %; Lymphocytes # (auto) 1.34 K/uL (1.2-3.4); Lymphocytes % (auto) 21.8 %; Mean Corpuscular Hemoglobin 32.3 pg (25-34); Mean Corpuscular Hgb Conc 34.1 g/dL (32-36); Mean Corpuscular Volume 94.7 fL (80-100); Mean Platelet Volume 8.8 fL (7.4-10.4); Monocytes # (auto) 0.41 K/uL (0.11-0.59); Monocytes % (auto) 6.7 %; Neutrophils # (auto) 3.66 K/uL (1.4-6.5); Neutrophils % (auto) 59.2 %; Platelet Count 140 K/uL (130-400); RDW Coefficient of Variation 14.6 % (11.5-14.5); RDW Standard Deviation 51.1 fL (36.4-46.3); Red Blood Count 2.82 M/uL (4.7-6.1); White Blood Count 6.16 K/uL (4.8-10.8)
[2020-05-25 07:07] LABS: INR 2.1 (0.9-1.1); Prothrombin Time 20.9 Seconds (9.0-12.0)
[2020-05-25] MEDS: LEVALBUTEROL HCL 0.63 MG/3 ML NEB NEB SCH ×4 (07:13→20:27)
[2020-05-25 07:44] LABS: Albumin Globulin Ratio 0.6 (0.9-2); Albumin Level 2.1 gm/dl (3.4-5.0); BUN Creatinine Ratio 15.1 (10-20); Bilirubin,Total 0.5 mg/dl (0.2-1); Calcium 8.1 mg/dl (8.5-10.1); Creatinine Clr Calc Pharmacy 55.7 ml/min; Est GFR (African American) 96.9; Est GFR (Non-African American) 83.6; Ferritin 293.5 ng/ml (8-388); Globulin 3.3 gm/dl (2.5-4.0); Magnesium 2.1 mg/dl (1.8-2.4); Phosphorus 2.9 mg/dl (2.5-4.9); Potassium 4.2 mmol/L (3.5-5.1); Total Protein 5.4 gm/dl (6.4-8.2)
[2020-05-25] MEDS: ASPIRIN 81 MG ECTAB PO SCH (07:50)
[2020-05-25] MEDS: POLYETHYLENE (MIRALAX) 17 GM PACK PO SCH (07:50)
[2020-05-25] MEDS: ASCORBIC ACID 500 MG TAB PO SCH (07:51)
[2020-05-25] MEDS: METOPROLOL SUCC 25MG EXT REL TAB PO SCH (07:51)
[2020-05-25] MEDS: TAMSULOSIN HCL 0.4 MG CAP PO SCH ×2 (07:51→21:02)
[2020-05-25] MEDS: MULTIVITAMIN TAB PO SCH (07:52)
[2020-05-25] MEDS: DUTASTERIDE 0.5 MG CAP PO SCH (07:52)
[2020-05-25] MEDS: ROSUVASTATIN CALCIUM 10 MG TAB PO SCH (07:52)
[2020-05-25] MEDS: DOCUSATE SODIUM 100 MG CAP PO SCH ×2 (07:59→21:53)
[2020-05-25] MEDS: ACETAMINOPHEN 500 MG TAB PO PRN ×2 (08:08→18:33)
[2020-05-25 08:45] LABS: Folate (Folic Acid) 8.04 ng/ml (>5.38)
[2020-05-25] MEDS: FERROUS SULFATE 325 MG TAB PO SCH ×2 (08:54→16:31)
--- NOTE | 2020-05-25 09:54 | Hospitalist Progress Note ---
Date of Service May 25, 2020 Assessment & Plan (1) Fracture of femoral neck, left: Mr. Castro is an 84 yo M with a PMHx of cerebral palsy who was transferred from [facility] after sustaining a left femoral neck fracture after a mechanical fall. Orthopedics consulted -- appreciate assistance * POD #4 s/p LEFT hip hemiarthroplasty with Dr. Lora. EBL 250cc. Pre-op h/h 13.9/43.0. --> will need f/u 2 weeks * Tylenol, morphine prn pain --> I added oxycodone for PO alternative 05/22 * CXR pre-op without acute infiltrate, did have LEFT pulmonary nodule * --> Patient requiring oxygen and crackles on exam with repeat CXR obtained showing possible left lung base consolidation, new from 05/20 and placed on Zosyn empirically for PNA -- continue but will likely transition to Augmentin in AM * PT/OT evaluations with rec for SNF -- ref sent to [facility]. CM following * H/h improved to 9.1/26.7 -- iron studies with iron low 22, TIBC 134, transferrin 10, trans % sat low 16, ferritin 293.5 --> initiated ferrous sulfate BID * CBC in AM (2) Atrial fibrillation: * Transferred to telemetry evening 05/22 for tachycardia, hypotension for closer monitoring * Flipped into atrial fibrillation up to rate of 180s, given Lopressor IV, replaced phosphorus 1.2 with 40mmol K phos with repeat wnl at 2.9, Mag 1.9 and given 2gm IV with repeat 2.2. NSS 500cc bolus * EKG evening 05/23 with atrial fibrillation, LAD, RBBB, ventricular rate increased by 91bpm and flipped back into NSR at 23:19 * TSH 1.690 * Cardiology consulted -- likely patient had issues with this in the past and is at elevated risk for stroke * ECHO ordered to assess LV function -- technically difficult given patient cooperation but LV function appears normal. Mild-moderate aortic regurgitation * Initiated on metoprolol succinate 25mg PO daily --> has remained in NSR with PACs 80-90s but did get up into 110s * Continue to monitor but could consider increasing MTP * Initiated and continue Coumadin 5mg PO daily --> INR now 2.1 -- will need f/u with coag clinic. CM aware. Will fill out form in AM. * --> Discussed with sister who is his primary caregiver with regards to reducing his phenobarbital and hopeful discontinuation and that they can continue with coumadin or switch to a NOAC given risk/reversibility and interactions. She did have some concerns about his falls, but is in agreement that given paroxysmal nature he is at significant risk for stroke and decision was made to continue with coumadin. (3) Hypoxia: RESOLVED Of note, patient did have left pulmonary nodule on pre-op CXR -- will need f/u outpt * CXR showed new left lung base consolidation and patient placed on abx * BCx NGTD 48hr * Zosyn discontinued (today would be day #4) and transitioned to Augmentin on 05/25 to complete course of 7 days * Continue nebs but will change to prn starting tomorrow * Continue flutter valve * Sputum if able to produce * Discussed with nursing reported drop to 87% overnight -> not reported and felt to be inaccurate. Weaned down this afternoon and currently 93% on Room Air * Supplemental o2 as needed (4) Pneumonia: * See above under hypoxia (5) Benign localized hyperplasia of prostate with urinary obstruction and lower urinary tract symptoms: * Continue dutasteride and tamsulosin when taking po * urine clear/light yellow, improved with ponce --> discontinued this afternoon * continue to monitor UO -- currently acceptable at 0.74ml/kg/hr (6) Urinary retention: * See above * Continue to monitor (7) Hyperlipidemia: * Crestor 10mg daily (8) Hx of seizure disorder: * Hx grand mal until age 14 * Phenobarbital 32.4mg BID daily * Phenobarb level wnl --> Of note, patient has not had a seizure in 70 years. * Discussed with neurology who recommends decreasing phenobarbital to once daily for a month and then follow up with PCP for further reduction/discontinuation since we will be starting anticoagulation for pAF Reduced phenobarb to once daily 05/23 and will need further titration/follow-up with PCP outpt --> discussed at length with sister this afternoon (9) Pulmonary nodule: * follow up with pcp (10) Acute blood loss anemia: * As above * B12 546, Folate 8.014 * Started on iron supplementation BID for iron studies as above (11) Hypophosphatemia: * Resolved -- phos 2.9 * Will repeat in AM given drop in days prior after replacement (12) DVT prophylaxis: * ASA 81mg BID --> will switch to daily dosing as he is now on Coumadin for afib as above and INR therapeutic at 2.1 * SCDs Dispo: ref sent to [facility] --> possible discharge tomorrow vs Friday Admission and Anticipated Discharge Date Admission Date: May 21, 2020 Subjective Patient evaluated this morning. Initially on bedpan, with complaints of not being able to move his bowels on such and requested to use bedside commode. Present with nursing to get patient to bedside commode. He notes some irrigation with the Ponce catheter. Discussed we will discontinue that this afternoon. Decreased cough today, continues to deny shortness of breath, chest pain, hematuria. Feels cold next to the air conditioner and would like to be moved to bed1 if possible once they are discharged. Later this afternoon, sister present at bedside and I went back to discuss plan of care with regards to his medications and several changes that were made. Upon entry, patient appearing much more comfortable. States he was able to have a bowel movement on bedside commode and is feeling much better. No longer on oxygen and continues to deny shortness of breath. Has been utilizing nebulizers as scheduled and flutter valve twice. Discussed switching over to oral antibiotics today and that we will repeat CXR in AM to monitor progression. Sister agreeable to reduce phenobarbital and follow up with PCP Dr. Hook for further reduction and possible discontinuation given his stability. She does note that he had had Grand Mal seizures until the age of 14 and then since that time nothing. She does note that he will occasionally have a starring off for a couple of seconds but no seizure activity. She states patient was home and born , dipped in hot and cold water, and came back to life. Had twisted leg and had been in a cast until age [age] and continued in cast. Started school at age 9 and graduated highschool. Had been in retirement work for approximately 25 years but had a difficult time finding work with his disability. Sister notes she has a wheeled walker at home and her son, EULOGIO, is considering having a ramp put in (he works for [employer] in [place]) and that they could consider taking him home but that he is not at his baseline and really needs rehab prior to returning home, and that they plan on appealing if denied. Discussed that I have not heard back about any denial but that we will follow up on this as he is looking much better this afternoon and labs have improved. Review of Systems Review of Systems: All systems reviewed & are unremarkable except as noted in HPI & below Physical Exam Constitutional: WD/WN, vitals as above no acute distress Eyes: + anicteric sclerae and PERRL Neck: normal visual inspection Respiratory: normal respiratory effort; no respiratory distress Auscultation: + crackles (left base); no wheezes Cardiovascular: RRR, no murmur, no edema Gastrointestinal (Abdomen): normal bowel sounds, soft, nontender, no hepatosplenomegaly Inspection/Auscultation: normal bowel sounds Percussion/Palpation: abdomen soft; abdomen nontender and no guarding Musculoskeletal: dressing to LEFT hip c/d/i non-tender to palpation NVI 2+ pulses pt, dp bilaterally calves non-tender to palpation Skin: warm, dry Neurologic: patellar DTR's 2+ bilat, sensation intact Psychiatric: Orientation: alert, oriented to person, oriented to place and oriented to time Genitourinary: ponce draining clear/light yellow colored urine --> discontinued this afternoon Lymphatic: no cervical or axillary lymphadenopathy Results & Data Results & Data ([facility]) Vital Signs (Past 12 Hours) Vital Signs Temp Pulse Pulse Pulse Resp BP Pulse Ox 05/25/20 07:30 84 05/25/20 07:14 80 18 97 05/25/20 07:11 36.4 C L 84 20 111/60 96 05/25/20 02:26 36.9 C 83 18 100/67 97 05/25/20 00:12 93 H 05/24/20 23:35 38.1 C H 93 H 20 108/64 91 Laboratory Results 05/25/20 05/25/20 05/25/20 Range/Units 06:43 06:43 06:43 WBC 6.16 (4.8-10.8) K/uL RBC 2.82 L (4.7-6.1) M/uL Hgb 9.1 L (14.0-18.0) g/dL Hct 26.7 L (42-52) % MCV 94.7 (80-100) fL MCH 32.3 (25-34) pg MCHC 34.1 (32-36) g/dL RDW Std Deviation 51.1 H (36.4-46.3) fL RDW Coeff of Sara 14.6 H (11.5-14.5) % Plt Count 140 (130-400) K/uL MPV 8.8 (7.4-10.4) fL Immature Gran % (Auto) 0.2 % Neut % (Auto) 59.2 % Lymph % (Auto) 21.8 % [place] % (Auto) 6.7 % Eos % (Auto) 11.9 % Baso % (Auto) 0.2 % Neut # (Auto) 3.66 (1.4-6.5) K/uL Lymph # (Auto) 1.34 (1.2-3.4) K/uL [place] # (Auto) 0.41 (0.11-0.59) K/uL Eos # (Auto) 0.73 H (0-0.5) K/uL Baso # (Auto) 0.01 (0-0.2) K/uL Immature Gran # (Auto) 0.01 (0.00-0.02) K/uL PT 20.9 H (9.0-12.0) Seconds INR 2.1 H (0.9-1.1) Sodium (136-145) mmol/L Potassium (3.5-5.1) mmol/L Chloride (98-107) mmol/L Carbon Dioxide (21-32) mmol/L Anion Gap (3-11) BUN (7-18) mg/dl Creatinine (0.6-1.4) mg/dl Est Cr Clr Drug Dosing ml/min Est GFR ( Amer) Est GFR (Non-Af Amer) BUN/Creatinine Ratio (10-20) Glucose (70-99) mg/dl Calcium (8.5-10.1) mg/dl Phosphorus (2.5-4.9) mg/dl Magnesium (1.8-2.4) mg/dl Iron (35-175) mcg/dl TIBC (250-450) mcg/dl Transferrin (200-360) mg/dl Transferrin % Sat (20-50) % Ferritin (8-388) ng/ml Total Bilirubin (0.2-1) mg/dl AST (15-37) U/L ALT (12-78) U/L Alkaline Phosphatase (45-117) U/L Lactate Dehydrogenase (87-241) U/L Total Protein (6.4-8.2) gm/dl Albumin (3.4-5.0) gm/dl Globulin (2.5-4.0) gm/dl Albumin/Globulin Ratio (0.9-2) Vitamin B12 546 (211-911) pg/ml Folate 8.04 (>5.38) ng/ml Stool Occult Bld Scrn (Negative) 05/25/20 05/24/20 05/24/20 Range/Units 06:43 18:19 12:32 WBC (4.8-10.8) K/uL RBC (4.7-6.1) M/uL Hgb (14.0-18.0) g/dL Hct (42-52) % MCV (80-100) fL MCH (25-34) pg MCHC (32-36) g/dL RDW Std Deviation (36.4-46.3) fL RDW Coeff of Sara (11.5-14.5) % Plt Count (130-400) K/uL MPV (7.4-10.4) fL Immature Gran % (Auto) % Neut % (Auto) % Lymph % (Auto) % [place] % (Auto) % Eos % (Auto) % Baso % (Auto) % Neut # (Auto) (1.4-6.5) K/uL Lymph # (Auto) (1.2-3.4) K/uL [place] # (Auto) (0.11-0.59) K/uL Eos # (Auto) (0-0.5) K/uL Baso # (Auto) (0-0.2) K/uL Immature Gran # (Auto) (0.00-0.02) K/uL PT (9.0-12.0) Seconds INR (0.9-1.1) Sodium 140 (136-145) mmol/L Potassium 4.2 (3.5-5.1) mmol/L Chloride 108 H (98-107) mmol/L Carbon Dioxide 26 (21-32) mmol/L Anion Gap 6.0 (3-11) BUN 12 (7-18) mg/dl Creatinine 0.79 (0.6-1.4) mg/dl Est Cr Clr Drug Dosing 55.7 ml/min Est GFR ( Amer) 96.9 Est GFR (Non-Af Amer) 83.6 BUN/Creatinine Ratio 15.1 (10-20) Glucose 98 (70-99) mg/dl Calcium 8.1 L (8.5-10.1) mg/dl Phosphorus 2.9 (2.5-4.9) mg/dl Magnesium 2.1 (1.8-2.4) mg/dl Iron 22 L (35-175) mcg/dl TIBC 134 L (250-450) mcg/dl Transferrin 101 L (200-360) mg/dl Transferrin % Sat 16 L (20-50) % Ferritin 293.5 (8-388) ng/ml Total Bilirubin 0.5 (0.2-1) mg/dl AST 50 H (15-37) U/L ALT 34 (12-78) U/L Alkaline Phosphatase 48 (45-117) U/L Lactate Dehydrogenase 276 H (87-241) U/L Total Protein 5.4 L (6.4-8.2) gm/dl Albumin 2.1 L (3.4-5.0) gm/dl Globulin 3.3 (2.5-4.0) gm/dl Albumin/Globulin Ratio 0.6 L (0.9-2) Vitamin B12 (211-911) pg/ml Folate (>5.38) ng/ml Stool Occult Bld Scrn Negative (Negative) PG Care Time/CCT Total # of Minutes Spent Total Time Spent with Patient: Total time spent is greater than 50% in coordination of care (as documented) at patient's floor/unit and/or counseling patient: Coding Level of Care Code 25766 Subseq Hosp Care Lvl 3 Diagnoses Fracture of femoral neck, left S72.002A Atrial fibrillation I48.91 Hypoxia R09.02 Pneumonia J18.9 Benign localized hyperplasia of prostate with urinary obstruction and lower urinary tract symptoms N40.1; N13.9 Urinary retention R33.9 Hyperlipidemia E78.5 Hx of seizure disorder Z86.69 Pulmonary nodule R91.1 Acute blood loss anemia D62 Hypophosphatemia E83.39 DVT prophylaxis Z29.9
[2020-05-25] MEDS: DOCUSATE SODIUM/SENNA 50/8.6MG TAB PO SCH (13:29)
[2020-05-25] MEDS: WARFARIN SOD 5 MG TAB PO SCH (16:31)
[2020-05-25] MEDS: AMOXICILLIN/CLAVULANATE 875 MG TAB PO SCH (17:52)
[2020-05-25] MEDS: oxyCODONE HCL IR 5 MG TAB (IMMEDIATE RELEASE) PO PRN (19:38)
[2020-05-25] MEDS: SENNA 8.6 MG TAB PO SCH (21:02)
[2020-05-25] MEDS: CALCIUM POLYCARBOPHIL 625MG TAB PO SCH (21:02)
[2020-05-26] MEDS: oxyCODONE HCL IR 5 MG TAB (IMMEDIATE RELEASE) PO PRN (03:43)
[2020-05-26 06:34] LABS: Hematocrit (blood only) 29.1 % (42-52); Hemoglobin 9.6 g/dL (14.0-18.0); Mean Corpuscular Hemoglobin 31.5 pg (25-34); Mean Corpuscular Volume 95.4 fL (80-100); Mean Platelet Volume 8.8 fL (7.4-10.4); Platelet Count 204 K/uL (130-400); RDW Coefficient of Variation 14.6 % (11.5-14.5); Red Blood Count 3.05 M/uL (4.7-6.1); White Blood Count 6.49 K/uL (4.8-10.8)
[2020-05-26 06:45] LABS: INR 2.9 (0.9-1.1); Prothrombin Time 29.1 Seconds (9.0-12.0)
[2020-05-26 07:00] LABS: BUN Creatinine Ratio 17.5 (10-20); Creatinine Clr Calc Pharmacy 57.1 ml/min; Est GFR (African American) 97.9; Est GFR (Non-African American) 84.5; Magnesium 2.1 mg/dl (1.8-2.4); Potassium 4.1 mmol/L (3.5-5.1)
[2020-05-26 07:01] LABS: Phosphorus 2.4 mg/dl (2.5-4.9)
[2020-05-26] MEDS: LEVALBUTEROL HCL 0.63 MG/3 ML NEB NEB SCH ×2 (07:19→13:29)
[2020-05-26] MEDS ORDERED: POTASSIUM PHOS 3 MMOL/1 ML INFUSION IV STA (07:47)
[2020-05-26] MEDS ORDERED: POTASSIUM PHOSPHATE 9 MMOL in SODIUM CHLORIDE 0.9% 250 ML IV ONE (08:15)
[2020-05-26] MEDS: POLYETHYLENE (MIRALAX) 17 GM PACK PO SCH (08:26)
[2020-05-26] MEDS: TAMSULOSIN HCL 0.4 MG CAP PO SCH ×2 (08:29→19:56)
[2020-05-26] MEDS: DUTASTERIDE 0.5 MG CAP PO SCH (08:29)
[2020-05-26] MEDS: ASPIRIN 81 MG ECTAB PO SCH (08:30)
[2020-05-26] MEDS: ROSUVASTATIN CALCIUM 10 MG TAB PO SCH (08:30)
[2020-05-26] MEDS: MULTIVITAMIN TAB PO SCH (08:31)
[2020-05-26] MEDS: DOCUSATE SODIUM/SENNA 50/8.6MG TAB PO SCH (08:31)
[2020-05-26] MEDS: ASCORBIC ACID 500 MG TAB PO SCH (08:31)
[2020-05-26] MEDS: METOPROLOL SUCC 25MG EXT REL TAB PO SCH (08:32)
[2020-05-26] MEDS: AMOXICILLIN/CLAVULANATE 875 MG TAB PO SCH ×2 (08:32→17:35)
[2020-05-26] MEDS: FERROUS SULFATE 325 MG TAB PO SCH ×2 (08:32→17:35)
[2020-05-26] MEDS: ACETAMINOPHEN 500 MG TAB PO PRN ×2 (08:38→12:20)
[2020-05-26] MEDS: DOCUSATE SODIUM 100 MG CAP PO SCH ×2 (08:43→19:59)
--- NOTE | 2020-05-26 09:23 | XRay Report ---
XR chest 1V portable HISTORY: 84 years-old Male f/u acute respiratory failure with reported pneumonia COMPARISON: Chest radiograph 05/24/2020 TECHNIQUE: Portable AP view of the chest FINDINGS: Cardiac silhouette is enlarged, unchanged. No pneumothorax. Trace pleural effusions. Mild left greate r than right bibasilar opacities. There is decreased pulmonary vascular congestion with mildly improv ed aeration of the left lung base. Degenerative changes of the shoulders and spine. Convex right curv ature of the midthoracic spine. Moderate gaseous distention of the stomach. IMPRESSION: 1. Cardiomegaly with decreased pulmonary vascular congestion. 2. Trace pleural effusions with mild left greater than right bibasilar opacities. There is mildly imp roved aeration of the left lung base. ACT 112: Negative or not required by law. The above report was generated using voice recognition software. It may contain grammatical, syntax o r spelling errors. Electronically signed by: Herbert Myers M.D. 05/26/2020 9:22 AM
[2020-05-26] MEDS ORDERED: METOPROLOL SUCC 25MG EXT REL TAB PO STA (09:47)
[2020-05-26] MEDS ORDERED: TRIAMCINOLONE ACET 0.025% CR 15 GM TUBE EXT PRN (11:15)
--- NOTE | 2020-05-26 11:19 | Hospitalist Progress Note ---
Date of Service May 26, 2020 Assessment & Plan (1) Pneumonia: * Pt became hypoxic --> CXR showed new left lung base consolidation * BCx NGTD * Zosyn discontinued and transitioned to Augmentin on 05/25 -- to be completed on 05/29 * Continue nebs but will change to prn starting tomorrow * Continue flutter valve * Sputum if able to produce (2) Atrial fibrillation: * Transferred to telemetry evening 05/22 for tachycardia, hypotension for closer monitoring * Flipped into atrial fibrillation up to rate of 180s, given Lopressor IV, replaced phosphorus 1.2 with 40mmol K phos with repeat wnl at 2.9, Mag 1.9 and given 2gm IV with repeat 2.2. NSS 500cc bolus * EKG evening 05/23 with atrial fibrillation, LAD, RBBB, ventricular rate increased by 91bpm and flipped back into NSR at 23:19 * TSH 1.690 * Cardiology consulted -- likely patient had issues with this in the past and is at elevated risk for stroke * ECHO ordered to assess LV function -- technically difficult given patient cooperation but LV function appears normal. Mild-moderate aortic regurgitation * Initiated on metoprolol succinate 25mg PO daily * --> has remained in NSR with PACs 80-90s but did get up into 110s with burst of PAT last evening and 14 beat run atrial tachycardia this morning around 7:07am --> increased metoprolol to 50mg daily and continue to monitor on telemetry * Initiated and continue Coumadin 5mg PO daily --> INR now 2.9 -- will need f/u with coag clinic. CM aware. Will need form filled out prior to d/c. Will hold this evening's dose and repeat INR in AM as patient still on abx * --> Discussed with sister who is his primary caregiver with regards to reducing his phenobarbital and hopeful discontinuation and that they can continue with coumadin or switch to a NOAC given risk/reversibility and interactions. She did have some concerns about his falls, but is in agreement that given paroxysmal nature he is at significant risk for stroke and decision was made to continue with coumadin. (3) Benign localized hyperplasia of prostate with urinary obstruction and lower urinary tract symptoms: * Continue tamsulosin. * Previous dutasteride resumed morning 05/26 and likely contributed to need for reinsertion of ponec last evening * will need voiding trial prior to d/c * UO acceptable (4) Hyperlipidemia: * Crestor 10mg daily (5) Hx of seizure disorder: * Hx grand mal until age 14 * Phenobarbital 32.4mg BID daily * Phenobarb level wnl --> Of note, patient has not had a seizure in 70 years. * Discussed with neurology who recommends decreasing phenobarbital to once daily for a month and then follow up with PCP for further reduction/discontinuation since we will be starting anticoagulation for pAF Reduced phenobarb to once daily 05/23 and will need further titration/follow-up with PCP outpt --> discussed at length with sister No seizure activity noted (6) Pulmonary nodule: * follow up with pcp (7) Acute blood loss anemia: * As above * B12 546, Folate 8.014 * Started on iron supplementation BID for iron studies as above (8) Hypophosphatemia: * Phos 2.4 -- ordered replacement * Repeat in AM (9) Seborrheic dermatitis: * Noted areas on face/neck/head * Ordered triamcinolone 0.025% BID to affected areas (10) DVT prophylaxis: * ASA 81mg BID --> switched to daily dosing as he is now on Coumadin for afib as above and INR therapeutic at 2.9 * SCDs Dispo: ref sent to [facility], pending. If denied, family would like to take patient home with home health. CM following Admission and Anticipated Discharge Date Admission Date: May 21, 2020 Subjective Patient evaluated this morning. Feeling much better today. Some pain to his left hip, but maintained with current medications. States he walked to the door with therapy and back today with a walker. Ate almost his entire breakfast. Ponce inserted last night, no further lower abd pain. Large bowel movement reported. No further cough, breathing improved. No longer on oxygen. Denies fever, chills, chest pain, shortness of breath, abdominal pain, nausea, vomiting at this time. Plans per nursing and CM, patient's family (POA) would like to have patient return home with appropriate hospital bed and ramp if unable to go to rehab. Review of Systems Review of Systems: All systems reviewed & are unremarkable except as noted in HPI & below Physical Exam Constitutional: WD/WN, vitals as above no acute distress Eyes: + anicteric sclerae and PERRL Neck: normal visual inspection Respiratory: normal respiratory effort; no respiratory distress and not tachypneic Auscultation: + crackles (left base, decreased); no wheezes breathing comfortably on RA Cardiovascular: RRR, no murmur, no edema Gastrointestinal (Abdomen): normal bowel sounds, soft, nontender, no hepatosplenomegaly Inspection/Auscultation: normal bowel sounds Percussion/Palpation: abdomen soft; abdomen nontender and no guarding Musculoskeletal: dressing to L hip c/d/i small blister noted along dressing, not ruptured minimally tender to palpation NVI calves non-tender to palpation 2+ pt, dp pulses bilaterally Skin: warm, dry seborrheic dermatitis to face/head/neck region Neurologic: patellar DTR's 2+ bilat, sensation intact Psychiatric: Orientation: alert, oriented to person, oriented to place and oriented to time Genitourinary: ponce Lymphatic: no cervical or axillary lymphadenopathy Results & Data Results & Data ([facility]) Vital Signs (Past 12 Hours) Vital Signs Temp Pulse Pulse Pulse Resp BP BP 05/26/20 07:50 90 05/26/20 07:20 37.3 C 90 16 130/78 05/26/20 07:19 91 H 18 05/26/20 03:50 36.5 C 94 H 20 161/88 H 05/26/20 00:53 76 05/25/20 23:19 37.2 C 84 20 136/82 Pulse Ox 05/26/20 07:50 05/26/20 07:20 96 05/26/20 07:19 92 05/26/20 03:50 92 05/26/20 00:53 05/25/20 23:19 92 Laboratory Results 05/26/20 05/26/20 05/26/20 Range/Units 11:00 05:43 05:43 WBC (4.8-10.8) K/uL RBC (4.7-6.1) M/uL Hgb (14.0-18.0) g/dL Hct (42-52) % MCV (80-100) fL MCH (25-34) pg MCHC (32-36) g/dL RDW Std Deviation (36.4-46.3) fL RDW Coeff of Sara (11.5-14.5) % Plt Count (130-400) K/uL MPV (7.4-10.4) fL PT 29.1 H (9.0-12.0) Seconds INR 2.9 H (0.9-1.1) Sodium 139 (136-145) mmol/L Potassium 4.1 (3.5-5.1) mmol/L Chloride 107 (98-107) mmol/L Carbon Dioxide 28 (21-32) mmol/L Anion Gap 4.0 (3-11) BUN 13 (7-18) mg/dl Creatinine 0.77 (0.6-1.4) mg/dl Est Cr Clr Drug Dosing 57.1 ml/min Est GFR ( Amer) 97.9 Est GFR (Non-Af Amer) 84.5 BUN/Creatinine Ratio 17.5 (10-20) Glucose 90 (70-99) mg/dl Calcium 8.0 L (8.5-10.1) mg/dl Phosphorus 2.4 L (2.5-4.9) mg/dl Magnesium 2.1 (1.8-2.4) mg/dl Urine Color Yellow Urine Appearance Clear (Clear) Urine pH 7.0 (4.5-7.5) Ur Specific [place] 1.008 (1.000-1.030) Urine Protein Negative (Negative) Urine Glucose (UA) Negative (Negative) Urine Ketones Negative (Negative) Urine Blood 3+ H (Negative) Urine Nitrite Negative (Negative) Urine Bilirubin Negative (Negative) Urine Urobilinogen Negative (Negative) Ur Leukocyte Esterase Trace H (Negative) Urine RBC 10-30 H (0-4) /hpf Urine WBC 0-5 (0-5) /hpf Ur Epithelial Cells 0-5 (0-5) /lpf Urine Bacteria Negative (Negative) 05/26/20 Range/Units 05:43 WBC 6.49 (4.8-10.8) K/uL RBC 3.05 L (4.7-6.1) M/uL Hgb 9.6 L (14.0-18.0) g/dL Hct 29.1 L (42-52) % MCV 95.4 (80-100) fL MCH 31.5 (25-34) pg MCHC 33.0 (32-36) g/dL RDW Std Deviation 50.0 H (36.4-46.3) fL RDW Coeff of Sara 14.6 H (11.5-14.5) % Plt Count 204 (130-400) K/uL MPV 8.8 (7.4-10.4) fL PT (9.0-12.0) Seconds INR (0.9-1.1) Sodium (136-145) mmol/L Potassium (3.5-5.1) mmol/L Chloride (98-107) mmol/L Carbon Dioxide (21-32) mmol/L Anion Gap (3-11) BUN (7-18) mg/dl Creatinine (0.6-1.4) mg/dl Est Cr Clr Drug Dosing ml/min Est GFR ( Amer) Est GFR (Non-Af Amer) BUN/Creatinine Ratio (10-20) Glucose (70-99) mg/dl Calcium (8.5-10.1) mg/dl Phosphorus (2.5-4.9) mg/dl Magnesium (1.8-2.4) mg/dl Urine Color Urine Appearance (Clear) Urine pH (4.5-7.5) Ur Specific [place] (1.000-1.030) Urine Protein (Negative) Urine Glucose (UA) (Negative) Urine Ketones (Negative) Urine Blood (Negative) Urine Nitrite (Negative) Urine Bilirubin (Negative) Urine Urobilinogen (Negative) Ur Leukocyte Esterase (Negative) Urine RBC (0-4) /hpf Urine WBC (0-5) /hpf Ur Epithelial Cells (0-5) /lpf Urine Bacteria (Negative) Diagnostic Findings CXR IMPRESSION: 1. Cardiomegaly with decreased pulmonary vascular congestion. 2. Trace pleural effusions with mild left greater than right bibasilar opacities. There is mildly improved aeration of the left lung base. 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
[2020-05-26 11:33] LABS: Appearance Urine Clear (Clear); Bilirubin Urine Negative (Negative); Blood Urine 3+ (Negative); Color Urine Yellow; Glucose Urine UA Negative (Negative); Ketones Urine Negative (Negative); Leukocyte Esterase Urine Trace (Negative); Nitrite Urine Negative (Negative); Protein Urine Negative (Negative); Specific Gravity Urine 1.008 (1.000-1.030); Urobilinogen Urine Negative (Negative)
[2020-05-26 11:45] LABS: Epithelial Cell Urine 0-5 /lpf (0-5)
[2020-05-26 11:46] LABS: Bacteria Urine Negative (Negative); WBC Urine 0-5 /hpf (0-5)
[2020-05-26] MEDS ORDERED: LEVALBUTEROL HCL 0.63 MG/3 ML NEB NEB PRN (15:56)
[2020-05-26] MEDS: CALCIUM POLYCARBOPHIL 625MG TAB PO SCH (19:56)
[2020-05-26] MEDS: SENNA 8.6 MG TAB PO SCH (19:57)
[2020-05-27 06:54] LABS: Hematocrit (blood only) 26.7 % (42-52); Mean Corpuscular Hemoglobin 31.7 pg (25-34); Mean Corpuscular Hgb Conc 33.7 g/dL (32-36); Mean Platelet Volume 8.2 fL (7.4-10.4); Platelet Count 217 K/uL (130-400); RDW Coefficient of Variation 14.4 % (11.5-14.5); RDW Standard Deviation 49.8 fL (36.4-46.3); Red Blood Count 2.84 M/uL (4.7-6.1)
[2020-05-27 06:58] LABS: INR 1.7 (0.9-1.1); Prothrombin Time 17.3 Seconds (9.0-12.0)
[2020-05-27 07:25] LABS: BUN Creatinine Ratio 21.4 (10-20); Calcium 8.1 mg/dl (8.5-10.1); Creatinine Clr Calc Pharmacy 58.6 ml/min; Est GFR (Non-African American) 85.4; Phosphorus 2.3 mg/dl (2.5-4.9)
[2020-05-27] MEDS: DUTASTERIDE 0.5 MG CAP PO SCH (08:35)
[2020-05-27] MEDS: ASPIRIN 81 MG ECTAB PO SCH (08:36)
[2020-05-27] MEDS: AMOXICILLIN/CLAVULANATE 875 MG TAB PO SCH (08:36)
[2020-05-27] MEDS: FERROUS SULFATE 325 MG TAB PO SCH (08:36)
[2020-05-27] MEDS: TAMSULOSIN HCL 0.4 MG CAP PO SCH (08:37)
[2020-05-27] MEDS: ASCORBIC ACID 500 MG TAB PO SCH (08:37)
[2020-05-27] MEDS: DOCUSATE SODIUM/SENNA 50/8.6MG TAB PO SCH (08:38)
[2020-05-27] MEDS: POLYETHYLENE (MIRALAX) 17 GM PACK PO SCH (08:38)
[2020-05-27] MEDS: MULTIVITAMIN TAB PO SCH (08:38)
--- NOTE | 2020-05-27 08:38 | Hospitalist Progress Note ---
Date of Service May 27, 2020 Assessment & Plan (1) Fracture of femoral neck, left: Mr. Castro is an 84 yo M with a PMHx of cerebral palsy who was transferred from [facility] after sustaining a left femoral neck fracture after a mechanical fall. Orthopedics consulted -- appreciate assistance * s/p LEFT hip hemiarthroplasty with Dr. Lora on 05/21. EBL 250cc. Pre-op h/h 13.9/43.0. --> will need f/u 2 weeks * Tylenol, morphine prn pain. Added oxycodone for PO alternative 05/22 * PT/OT evaluations with rec for SNF -- ref sent to [facility]. CM following * acute blood loss anemia * (2) Pneumonia: * Pt became hypoxic --> CXR showed new left lung base consolidation * BCx NGTD * Zosyn discontinued and transitioned to Augmentin on 05/25 -- to be completed on 05/29 * Continue flutter valve * Sputum if able to produce (3) Atrial fibrillation: * Transferred to telemetry evening 05/22 for afib, with spontaneous conversion to nsr 05/23, Initiated on metoprolol succinate, now at 50 mg PO daily * TSH 1.690 * Cardiology consulted -- likely patient had issues with this in the past and is at elevated risk for stroke * ECHO LV function appears normal. Mild-moderate aortic regurgitation * Initiated and continue Coumadin 5mg PO daily --> INR therapeutic, will need f/u with coag clinic. CM aware. Will need form filled out prior to d/c. * --> Discussed with sister who is his primary caregiver with regards to reducing his phenobarbital ( since interats with DOAC) and hopeful discontinuation and that they can continue with coumadin or switch to a DOAC given risk/reversibility and interactions. She did have some concerns about his falls, but is in agreement that given paroxysmal nature he is at significant risk for stroke and decision was made to continue with coumadin. (4) Benign localized hyperplasia of prostate with urinary obstruction and lower urinary tract symptoms: * Continue tamsulosin. * Previous dutasteride resumed morning 05/26 and likely contributed to need for reinsertion of ponce last evening (5) Hyperlipidemia: * Crestor 10mg daily (6) Hx of seizure disorder: * Hx grand mal until age 14 * Phenobarbital 32.4mg BID daily * Phenobarb level wnl --> Of note, patient has not had a seizure in 70 years. * Discussed with neurology who recommends decreasing phenobarbital to once daily for a month and then follow up with PCP for further reduction/discontinuation since we will be starting anticoagulation for pAF Reduced phenobarb to once daily 05/23 and will need further titration/follow-up with PCP outpt --> discussed at length with sister No seizure activity noted (7) Pulmonary nodule: * pulmonary nodule program (8) Acute blood loss anemia: * As above * B12 546, Folate 8.014 * Started on iron supplementation BID for iron (9) Hypophosphatemia: * Phos 2.4 -- ordered replacement * dietary encourage good nutritional intake (10) Seborrheic dermatitis: * Noted areas on face/neck/head * Ordered triamcinolone 0.025% BID to affected areas (11) DVT prophylaxis: * ASA 81mg daily plus Coumadin ) also for afib Admission and Anticipated Discharge Date Admission Date: May 21, 2020 Results & Data Results & Data ([facility]) Vital Signs (Past 12 Hours) Vital Signs Temp Pulse Pulse Resp BP BP Pulse Ox 05/27/20 07:27 98.2 F 89 18 112/69 94 05/27/20 07:17 90 05/27/20 02:59 98.2 F 91 H 20 134/73 93 05/27/20 01:24 87 05/26/20 23:09 98.4 F 81 19 121/66 91 PG Care Time/CCT Total # of Minutes Spent Total Time Spent with Patient: Total time spent is greater than 50% in coordination of care (as documented) at patient's floor/unit and/or counseling patient: Coding Diagnoses Fracture of femoral neck, left S72.002A Pneumonia J18.9 Atrial fibrillation I48.91 Benign localized hyperplasia of prostate with urinary obstruction and lower urinary tract symptoms N40.1; N13.9 Hyperlipidemia E78.5 Hx of seizure disorder Z86.69 Pulmonary nodule R91.1 Acute blood loss anemia D62 Hypophosphatemia E83.39 Seborrheic dermatitis L21.9 DVT prophylaxis Z29.9
[2020-05-27] MEDS: ROSUVASTATIN CALCIUM 10 MG TAB PO SCH (08:39)
[2020-05-27] MEDS: DOCUSATE SODIUM 100 MG CAP PO SCH (08:39)
[2020-05-27] MEDS ORDERED: METOPROLOL SUCC 50MG EXT REL TAB PO SCH (09:00)
[2020-05-27] MEDS ORDERED: WARFARIN SOD 4 MG TAB PO SCH (16:00)
--- NOTE | 2020-05-27 17:22 | Discharge Summary ---
Date of Service May 27, 2020 Admission HPI Per Admitting Provider Mr. Castro is an 84 yo M with a PMHx of cerebral palsy who was transferred to [facility] from [facility] overnight for surgical consultation regarding a left femoral neck fracture he sustained on 05/20/20. While at an outdoor family gathering on 05/20, he sustained a mechanical fall on pavement. He typically uses a walker to ambulate around his house, but he reported that he did not have his typical assistive device while at the gathering. Instead, he was walking around with the aid of a "3 britt" and the support fo a family member - however they could not catch him before be fell down and struck the pavement. Immediately after the fall he had severe left hip pain and swelling. He could not bear weight on his left leg after the fall. An ambulance was called and transported him to [facility] where XRs showed a non- displaced left femoral neck fracture. He was treated with IV morphine for pain control. [facility] ED physician spoke with Dr. Lora (orthopedic surgeon) at [facility] who accepted his transfer. Medicine team was contacted and processed direct admission. Of note, Mr. Castro has had one prior operation on his left femur - this occured many years ago and was related to his cerebral palsy. Principal Diagnosis left hip fracture with repair Healthcare associated pneumonia completed treatment Atrial fibrillation Discharge Exam The patient appeared well Vital signs as documented. Lungs are clear to auscultation and appear unlabored Cardiac exam, irregularly irregular and rate controlled Abdominal exam reveals normal bowel sounds, soft non tender, no masses Neurologic exam is alert and oriented x2, no focal loss of strength or sensation Skin is without bruises or rashes Discharge Data Allergies Allergy/AdvReac Type Severity Reaction Status Date / Time No Known Drug Allergies Allergy Verified 03/02/20 12:23 Consultations 05/21/20 02:15 Consult Orthopedic Surgery Routine 05/21/20 04:16 Consult Case Management - Discharge Planning Routine 05/21/20 18:44 Consult Case Management - Discharge Planning Routine Consult Case Management - Discharge Planning Routine 05/23/20 08:20 Consult Cardiology Routine 05/27/20 17:09 Consult Lung Nodule Program Routine Procedures Performed Operation Date: 05/21/20 14:00 Actual Procedures p Left Anterior Hip Hemiarthroplasty Cemented(Left) - Ponce Lora, Ordered Studies 05/21/20 13:00 FL fluoroscopy <1hr Routine FL hip LT 1V Routine Hospital Course (1) Pneumonia: * Pt became hypoxic --> CXR showed new left lung base consolidation * BCx NGTD * Zosyn discontinued and transitioned to Augmentin on 05/25 -- to be completed on 05/29 * Continue flutter valve * Sputum if able to produce (2) Atrial fibrillation: * Transferred to telemetry evening 05/22 for afib, with spontaneous conversion to nsr 05/23, Initiated on metoprolol succinate, now at 50 mg PO daily * TSH 1.690 * Cardiology consulted -- likely patient had issues with this in the past and is at elevated risk for stroke * ECHO LV function appears normal. Mild-moderate aortic regurgitation * Initiated and continue Coumadin 5mg PO daily --> INR therapeutic, will need f/u with coag clinic. CM aware. Will need form filled out prior to d/c. * --> Discussed with sister who is his primary caregiver with regards to re ducing his phenobarbital ( since interats with DOAC) and hopeful discontinuation and that they can continue with coumadin or switch to a DOAC given risk/reversibility and interactions. She did have some concerns about his falls, but is in agreement that given paroxysmal nature he is at significant risk for stroke and decision was made to continue with coumadin. (3) Benign localized hyperplasia of prostate with urinary obstruction and lower urinary tract symptoms: * Continue tamsulosin. * Previous dutasteride resumed morning 05/26 and likely contributed to need for reinsertion of ponce last evening (4) Hyperlipidemia: * Crestor 10mg daily (5) Hx of seizure disorder: * Hx grand mal until age 14 * Phenobarbital 32.4mg BID daily * Phenobarb level wnl --> Of note, patient has not had a seizure in 70 years. * Discussed with neurology who recommends decreasing phenobarbital to once daily for a month and then follow up with PCP for further reduction/discontinuation since we will be starting anticoagulation for pAF Reduced phenobarb to once daily 05/23 and will need further titration/follow-up with PCP outpt --> discussed at length with sister No seizure activity noted (6) Pulmonary nodule: * pulmonary nodule program (7) Acute blood loss anemia: * As above * B12 546, Folate 8.014 * Started on iron supplementation BID for iron (8) Hypophosphatemia: * Phos 2.4 -- ordered replacement * dietary encourage good nutritional intake (9) Seborrheic dermatitis: * Noted areas on face/neck/head * Ordered triamcinolone 0.025% BID to affected areas (10) DVT prophylaxis: * ASA 81mg daily plus Coumadin ) also for afib Total Time Total Time Spent Total Time Spent (In Minutes): It required greater than 30 minutes to prepare this patient for discharge Discharge Plan Discharge Items Patient Disposition: Transfer Inpatient Rehab Fac Reason For Visit: LEFT HIP FRACTURE Discharge Diagnosis: hip fracture s/p repair Activity: Per Instructions section Activity Comment: per physical and occupational therapy Non-emergency contact: Primary Care Provider and Surgeon Call non-emergency contact if: you have any medication questions and your symptoms worsen Follow-up/Referrals: Gabby Reyna MD [Primary Care Provider] - Diet: Regular Addtl Attending Provider Instructions: pt is still having his coumadin adjusted for his afib and post op dvt prevention, is was creeping up with 5 mg a day, was held on 05/26 and now is slightly low so 4 mg a day was chosen but close INR monitoring is recommended ORTHOPEDIC INSTRUCTIONS Hip Hemiarthroplasty Activity and Therapy Recommendations: 1. You were shown a series of exercises in the hospital. Do these exercises three times each day if you are able. 2. Get up and walk several times each day if you are capable. Make sure you have assistance is needed. For the first four weeks, try not to stand or walk for more than one hour at a time. If you do stand or walk for more than one hour, you will not hurt anything, but your leg will likely swell. 3. As you feel comfortable, you may change from the walker or crutches to a cane and then to independent walking if you are able. Please be safe. Medications: 1. Narcotic You will likely be sent from the hospital with the narcotic pain medication that worked best throughout your stay. 2. Aspirin You will be required to take Aspirin 81mg twice a day for 6 weeks after surgery to prevent blood clots. 3. Other medications may be given for specific circumstances. If you have any questions, please call the office at [phone]. 4. Resume previous home medications unless otherwise instructed TEDs/Elastic Stockings: The white elastic stockings help limit swelling and prevent blood clots from forming in your legs. The more you wear them, the more they work. Wear them for six weeks. Dressing Care: Leave the Silverlon dressing in place for 7 days. After 7 days you may remove the dressing. If the incision is not draining then you may leave the amandeep open to air. If there is a little bit of drainage or if the amandeep are getting stuck on your clothing then cover the incision with a dry dressing. The amandeep will be removed at your 2 week follow-up appointment. Showering: You may shower with the Silverlon dressing in place. Do not let the shower spray hit the dressing directly. Pat the Silverlon dressing dry. If the dressing becomes wet underneath, then simply remove the dressing. Keep the incision dry until you are 7 days out from the day of surgery. After 7 days you may remove the Silverlon dressing and shower with the amandeep exposed. Let soapy water run over the amandeep and pat them dry. Do not scrub or soak the incision. Things To Watch For: 1. Drainage from the incision site that occurs more than one week after your surgery. 2. Increased redness at the incision site. 3. Fever above 102 degrees Fahrenheit. 4. Unusual chest pain or shortness of breath. 5. Call [facility] at with any of the above problems Follow-Up Visit: Follow-up with Dr. Lora's PA (Ponce Butler) 2-3 weeks after your day of surgery. He will remove your amandeep and answer any questions. If you have any additional questions or concerns, Dr Lora is usually in the office at the same time and will be available An appointment was probably scheduled when you signed-up for surgery in the office. If you have any questions call Pending Studies at Discharge: No Stand-Alone Forms: My [facility] Skilled Items Patient informed of condition?: Yes DNR: Yes Discharge Level of Care: Acute rehab Communicable Disease: No Discharge Prognosis: Stable Lines: None Urinary Catheter: Yes Medications and DC Order Prescriptions: New metoprolol succinate 50 mg Tablet Extended Release 24 Hr 50 mg PO QAM Qty: 30 RF: 0 warfarin [Coumadin] 4 mg Tablet 4 mg PO DAILY@1600 Qty: 30 RF: 0 docusate sodium 100 mg Capsule 100 mg PO BID Qty: 60 RF: 0 ferrous sulfate 325 mg (65 mg iron) Tablet,Delayed Release (Dr/Ec) 325 mg PO BIDM Qty: 60 RF: 0 phenobarbital 32.4 mg Tablet 32.4 mg PO QAM Qty: 30 RF: 0 oxycodone 5 mg Tablet 5 mg PO Q6H PRN (Reason: pain) Qty: 30 RF: 0 Continued rosuvastatin 10 mg tablet 10 mg PO .TAKE 1 TABLET DAILY. RF: 0 ascorbic acid (vitamin C) 500 mg tablet 500 mg PO .TAKE 1 TABLET DAILY. RF: 0 dutasteride 0.5 mg capsule 0.5 mg PO DAILY Qty: 90 RF: 3 aspirin 81 mg tablet,delayed release (DR/EC) 81 mg PO .TAKE 1 TABLET DAILY. Qty: 30 RF: 0 tamsulosin 0.4 mg capsule 0.4 mg PO BID 90 Days Qty: 180 RF: 3 calcium polycarbophil 625 mg tablet 625 mg PO .TAKE 2 TABLET Bedtime Qty: 60 RF: 0 Discontinued phenobarbital 32.4 mg tablet 32.4 mg PO .TAKE 1 TABLET TWICE DAILY. RF: 0 ibuprofen 200 mg tablet 200 mg PO .TAKE 1 TABLET Every 4 hours PRN RF: 0 Discharge Orders: Discharge Order (Routine); Ordered 05/27/20 Ordered By: Carlos Melo Admission Data Admit Date/Time: 05/21/20 01:28 Attending Provider: Carlos Melo Admit Provider: Abhishek Albright Primary Care Provider: Gabby Reyna Other Providers: [facility] ; Ponce Lora Christophe W. 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
== END 2020-05-27 15:37 | DRG 469 ==
LOC: SUATTDRO 05-21 01:28 → 3W 05-21 01:28 → 2N 05-22 17:33